=== PATIENT | male | born 1945 | race Caucasian/White ===

== ENCOUNTER 2021-02-17 08:22 | Day surgery (SDC) | payer MEDICARE, OTHER, SELFPAY ==
[2021-02-10 15:53] VITALS: BMI 25.0
--- NOTE | 2021-02-17 07:02 | MHC.SHP ---
Pre-Procedural Eval Section A Date of Service: 02/17/21 Section B Chief Complaint: cataract right eye Allergies: Allergies Allergy/AdvReac Type Severity Reaction Status Date / Time No Known Allergies Allergy Unverified 02/10/21 15:25 [No Known Allergies*] Plan I have reviewed the history and physical and performed a pertinent physical examination on my patient. No changes have occurred unless specified.
[2021-02-17 10:29] VITALS: BP 160/78; PULSE 57; RESP 18; TEMP 36.7; O2SAT 98
[2021-02-17] MEDS: Tetracaine HCl/PF 0.5% Oph Sol 4 ML DROPS 1 DROP EYE-RIGHT (10:35)
[2021-02-17] MEDS: Lactated Ringers 500 ML 50 ML IVCONT (10:35)
[2021-02-17] MEDS: Tropicamide 1 % Ophth Sol 3 ML BTL 1 DROP EYE-RIGHT ×3 (10:38→10:45)
[2021-02-17] MEDS: Phenylephrine HCL 2.5% Oph SoL 2 ML BOTTLE 1 DROP EYE-RIGHT ×3 (10:40→10:47)
--- NOTE | 2021-02-17 10:51 | HO.ANESPROP2 ---
[facility] Past Medical History Medical History Anxiety Bipolar disorder COPD (chronic obstructive pulmonary disease) COVID-19 vaccine series completed Dementia Elevated cholesterol Mood disorder Psychosis Surgical History Surgical History History of foot surgery Hx of colonoscopy Social History Social History Are you a primary critical care technician to a significant other at home: No Do you presently have visiting nurse or other home services: No Patient Tobacco Use Status: Former Tobacco user Quit Date: 2019 Tobacco use type: Cigarette Smoked in Last 30 Days: No Second Hand Smoke Exposure: No Use of substances other than those prescribed or required for medical reasons: No Have you been hit, kicked, punched, or otherwise hurt by someone within the past year? If so, by whom?: No Advance Directives: No Advance Directives Information Provided: No Advance Directives on File: No Recently lost weight without trying: No Eating poorly because of decreased appetite: No Nutrition Risks: No Nutritional Risk Meds Allergies Allergy/AdvReac Type Severity Reaction Status Date / Time No Known Allergies Allergy Verified 02/17/21 09:51 [No Known Allergies*] Active Medications: Current Medications Generic Name Dose Route Start Last Admin Trade Name Freq PRN Reason Stop Dose Admin Lactated Ringer's 1,000 mls @ 50 mls/hr 02/14/21 12:15 Lr IVCONT .Q20H GENOVEVA Lactated Ringer's 500 mls @ 50 mls/hr 02/17/21 07:45 02/17/21 10:35 Lr IVCONT 50 mls/hr .Q10H GENOVEVA Administration Povidone Iodine 1 appl 02/17/21 07:02 Povidone Iodine 5 % Ophth Soln 30 Ml Bottle EYE-RIGHT PREOP PRN Pre-Op Surgical Implant Prophy Home Medications Medication Instructions Recorded Confirmed Last Taken Type atorvastatin 20 mg tablet 1 tab PO DAILY 02/10/21 02/10/21 Unknown History cholecalciferol (vitamin D3) 25 1 tab PO DAILY 02/10/21 02/10/21 Unknown History mcg (1,000 unit) tablet divalproex 250 mg tablet,extended 250 tab PO BID 02/10/21 02/10/21 02/17/21 06:30 History release 24 hr gabapentin 400 mg capsule 400 cap PO BID 02/10/21 02/10/21 02/17/21 06:30 History quetiapine 50 mg tablet 50 tab PO BID 02/10/21 02/10/21 02/17/21 06:30 History venlafaxine 150 mg 1 cap PO DAILY 02/10/21 02/10/21 02/17/21 06:30 History capsule,extended release 24 hr Exam Exam Date and Time: February 17, 2021 1051 Height,Weight and Vital Signs: Height 5 ft 6 in Weight 70.307 kg Last Vital Signs Temp 98.0 F 02/17/21 10:29 Pulse 57 02/17/21 10:29 Resp 18 02/17/21 10:29 BP 160/78 H 02/17/21 10:29 Pulse Ox 98 02/17/21 10:29 Airway Mallampati Class: II TM Dist: >3cm Neck ROM: Full Denture: Upper and Lower
--- NOTE | 2021-02-17 10:55 | HO.ANESPROP2 ---
[facility] Past Medical History Medical History Anxiety Bipolar disorder COPD (chronic obstructive pulmonary disease) COVID-19 vaccine series completed Dementia Elevated cholesterol Mood disorder Psychosis Surgical History Surgical History History of foot surgery Hx of colonoscopy Social History Social History Are you a primary chronic care nurse to a significant other at home: No Do you presently have visiting nurse or other home services: No Patient Tobacco Use Status: Former Tobacco user Quit Date: 2019 Tobacco use type: Cigarette Smoked in Last 30 Days: No Second Hand Smoke Exposure: No Use of substances other than those prescribed or required for medical reasons: No Have you been hit, kicked, punched, or otherwise hurt by someone within the past year? If so, by whom?: No Advance Directives: No Advance Directives Information Provided: No Advance Directives on File: No Recently lost weight without trying: No Eating poorly because of decreased appetite: No Nutrition Risks: No Nutritional Risk Meds Allergies Allergy/AdvReac Type Severity Reaction Status Date / Time No Known Allergies Allergy Verified 02/17/21 09:51 [No Known Allergies*] Active Medications: Current Medications Generic Name Dose Route Start Last Admin Trade Name Freq PRN Reason Stop Dose Admin Lactated Ringer's 1,000 mls @ 50 mls/hr 02/14/21 12:15 Lr IVCONT .Q20H GENOVEVA Lactated Ringer's 500 mls @ 50 mls/hr 02/17/21 07:45 02/17/21 10:35 Lr IVCONT 50 mls/hr .Q10H GENOVEVA Administration Lactated Ringer's 1,000 mls @ 100 mls/hr 02/17/21 11:00 Lr IVCONT .Q10H GENOVEVA Povidone Iodine 1 appl 02/17/21 07:02 Povidone Iodine 5 % Ophth Soln 30 Ml Bottle EYE-RIGHT PREOP PRN Pre-Op Surgical Implant Prophy Home Medications Medication Instructions Recorded Confirmed Last Taken Type atorvastatin 20 mg tablet 1 tab PO DAILY 02/10/21 02/10/21 Unknown History cholecalciferol (vitamin D3) 25 1 tab PO DAILY 02/10/21 02/10/21 Unknown History mcg (1,000 unit) tablet divalproex 250 mg tablet,extended 250 tab PO BID 02/10/21 02/10/21 02/17/21 06:30 History release 24 hr gabapentin 400 mg capsule 400 cap PO BID 02/10/21 02/10/21 02/17/21 06:30 History quetiapine 50 mg tablet 50 tab PO BID 02/10/21 02/10/21 02/17/21 06:30 History venlafaxine 150 mg 1 cap PO DAILY 02/10/21 02/10/21 02/17/21 06:30 History capsule,extended release 24 hr Exam Exam Date and Time: February 17, 2021 105 Height,Weight and Vital Signs: Height 5 ft 6 in Weight 70.307 kg Last Vital Signs Temp 98.0 F 02/17/21 10:29 Pulse 57 02/17/21 10:29 Resp 18 02/17/21 10:29 BP 160/78 H 02/17/21 10:29 Pulse Ox 98 02/17/21 10:29 Airway Mallampati Class: II TM Dist: >3cm Neck ROM: Limited Denture: Upper and Lower
--- NOTE | 2021-02-17 11:31 | HO.PNOPHT ---
Ophthalmology Procedure Procedure Date of Service: 02/17/21 Ophthalmology Viscoelastic: Healon Duet Dual Pack Pro Ophthalmology Lenses: TECNIS [id number] (20.5) Procedure Notes: PREOPERATIVE DIAGNOSIS: Decreased visual acuity right eye secondary to cataract POSTOPERATIVE DIAGNOSIS: Same PROCEDURE: Right cataract extraction with intraocular lens insertion SURGEON: Juan Peraza M.D. ANESTHESIA: Topical/MAC ESTIMATED BLOOD LOSS: None COMPLICATIONS: None After obtaining informed consent, the patient was brought to the operating room suite and placed in the supine position. After adequate sedation per anesthesia, topical drops of Tetracaine were given to the right eye. The eye was then prepped and draped in the usual sterile fashion. The operating room microscope was then positioned over the operative eye and a lid speculum placed. A paracentesis was created. Viscoelastic was then instilled into the anterior chamber. A three plane incision was then created temporally, utilizing a 2.85 mm keratome. Capsulotomy forceps were then utilized to create a circular tear capsulotomy. Hydrodissection and hydrodelineation were carried out until adequate mobilization of the nucleus occurred. Phacoemulsification was then utilized to remove the dense central nucleus followed by removal of the cortical material utilizing the automated aspiration irrigation unit. Viscoelastic was instilled into the posterior capsular bag followed by placement of a posterior chamber intraocular lens without difficulty. The residual Viscoelastic was then removed utilizing the automated IA machine. The wound was checked and found to be watertight. The patient tolerated the procedure well and the lid speculum was removed. Intracameral injection of Vigamox 0.1 mL followed by a subtenon injection of Kenalog-40 0.2 mL were administered. The patient will be seen in the a.m.
[2021-02-17 12:02] VITALS: BP 160/78; PULSE 73; RESP 16; TEMP 36.5; O2SAT 100
== END 2021-02-17 12:15 | disposition home or self-care (01) ==
PROVIDERS: PCP Physician Assistant Medical; Visit Provider Ophthalmology
PROC: (CPT 66985; principal; 2021-02-17 10:50)
DX: H25.11 Age-related nuclear cataract, right eye (principal); H54.7 Unspecified visual loss; F03.90 Unspecified dementia, unspecified severity, without behavioral disturbance, psychotic disturbance, mood disturbance, and anxiety; Z79.899 Other long term (current) drug therapy; Z87.891 Personal history of nicotine dependence
CPT/HCPCS: 66984; J2250; J3300; V2632

== ENCOUNTER 2021-03-03 10:19 | Day surgery (SDC) | payer MEDICARE, OTHER, SELFPAY ==
[2021-02-10 16:00] VITALS: BMI 25.0
--- NOTE | 2021-02-24 14:50 | MHC.SHP ---
Pre-Procedural Eval Section A Date of Service: 02/24/21 The patient is an INPATIENT: No The History & Physical has been completed within 30 days and I have reviewed it.: Yes Section B Chief Complaint: cataract left eye Allergies: Allergies Allergy/AdvReac Type Severity Reaction Status Date / Time No Known Allergies Allergy Verified 02/17/21 09:51 [No Known Allergies*] Plan Diagnosis/Plan: Unchanged I have reviewed the history and physical and performed a pertinent physical examination on my patient. No changes have occurred unless specified.
--- NOTE | 2021-02-27 14:44 | P.CONAN_ITS ---
Documented by User: Penelope Michel NP 02/27/21 14:44 HPI - Anesthesia Eval Consult details Narrative: 76yo M for Left Cataract Extraction IOL Insertion PCP cleared Right eye 02/17/21: [facility] 2 [facility] Past Medical History Medical History Anxiety Bipolar disorder COPD (chronic obstructive pulmonary disease) COVID-19 vaccine series completed Dementia Elevated cholesterol Mood disorder Psychosis Surgical History Surgical History History of foot surgery Hx of colonoscopy Social History Social History Are you a primary career development coordinator/teacher to a significant other at home: No Do you presently have visiting nurse or other home services: No Patient Tobacco Use Status: Former Tobacco user Quit Date: 2019 Tobacco use type: Cigarette Second Hand Smoke Exposure: No Use of substances other than those prescribed or required for medical reasons: No Have you been hit, kicked, punched, or otherwise hurt by someone within the past year? If so, by whom?: No Advance Directives: No Advance Directives Information Provided: No Advance Directives on File: No Recently lost weight without trying: No Eating poorly because of decreased appetite: No Nutrition Risks: No Nutritional Risk Meds Allergies Allergy/AdvReac Type Severity Reaction Status Date / Time No Known Allergies Allergy Verified 02/17/21 09:51 [No Known Allergies*] Home Medications Medication Instructions Recorded Confirmed Last Taken Type atorvastatin 20 mg tablet 1 tab PO DAILY 02/10/21 02/10/21 03/03/21 History cholecalciferol (vitamin D3) 25 1 tab PO DAILY 02/10/21 02/10/21 03/03/21 H istory mcg (1,000 unit) tablet divalproex 250 mg tablet,extended 250 tab PO BID 02/10/21 02/10/21 03/03/21 History release 24 hr gabapentin 400 mg capsule 400 cap PO BID 02/10/21 02/10/21 03/03/21 History quetiapine 50 mg tablet 50 tab PO BID 02/10/21 02/10/21 03/03/21 History venlafaxine 150 mg 1 cap PO DAILY 02/10/21 02/10/21 03/03/21 History capsule,extended release 24 hr Exam Exam Date and Time: February 27, 2021 1444 Height,Weight and Vital Signs: Height 5 ft 6 in Weight 70.307 kg Assessment and Plan Assessment Anesthesia Assessment: Chart Reviewed Documented by User: Queta Barker MD 03/03/21 11:18 [facility] Past Medical History Medical History Anxiety Bipolar disorder COPD (chronic obstructive pulmonary disease) COVID-19 vaccine series completed Dementia Elevated cholesterol Mood disorder Psychosis Surgical History Surgical History History of foot surgery Hx of colonoscopy History of Problems with Anesthesia: No Social History Social History Are you a primary career development coordinator/teacher to a significant other at home: No Do you presently have visiting nurse or other home services: No Patient Tobacco Use Status: Former Tobacco user Quit Date: 2019 Tobacco use type: Cigarette Second Hand Smoke Exposure: No Use of substances other than those prescribed or required for medical reasons: No Have you been hit, kicked, punched, or otherwise hurt by someone within the past year? If so, by whom?: No Advance Directives: No Advance Directives Information Provided: No Advance Directives on File: No Recently lost weight without trying: No Eating poorly because of decreased appetite: No Nutrition Risks: No Nutritional Risk Meds Allergies Allergy/AdvReac Type Severity Reaction Status Date / Time No Known Allergies Allergy Verified 02/17/21 09:51 [No Known Allergies*] Home Medications Medication Instructions Recorded Confirmed Last Taken Type atorvastatin 20 mg tablet 1 tab PO DAILY 02/10/21 02/10/21 03/03/21 History cholecalciferol (vitamin D3) 25 1 tab PO DAILY 02/10/21 02/10/21 03/03/21 History mcg (1,000 unit) tablet divalproex 250 mg tablet,extended 250 tab PO BID 02/10/21 02/10/21 03/03/21 History release 24 hr gabapentin 400 mg capsule 400 cap PO BID 02/10/21 02/10/21 03/03/21 History quetiapine 50 mg tablet 50 tab PO BID 02/10/21 02/10/21 03/03/21 History venlafaxine 150 mg 1 cap PO DAILY 02/10/21 02/10/21 03/03/21 History capsule,extended release 24 hr Exam Airway Mallampati Class: II (Edentulous) TM Dist: >3cm Neck ROM: Full Denture: Upper and Lower Partial: Lower Loose/Missing/Broken Teeth: Yes, Upper and Lower Heart: RRR Lungs: CTA Assessment and Plan Assessment Anesthesia Assessment: Anesthesia Plan Discussed and Chart Reviewed Final Anesthetic Review History of Problems with Anesthesia: No NPO: Yes ASA Class: II Final Preanesthetic Review: Meds/Allgs Chart Reviewed, Consent Obtained/Reviewed and Anes Risks/Benef Reviewed Patient Risk: Low Procedure Risk: Low Anesthetic Plan Anesthetic Plan: MAC: Disposition: Standard PACU
[2021-03-03 10:41] VITALS: BP 135/73; PULSE 67; RESP 16; TEMP 36.2; O2SAT 96
[2021-03-03] MEDS: Tetracaine HCl/PF 0.5% Oph Sol 4 ML DROPS 1 DROP EYE-LEFT (10:43)
[2021-03-03] MEDS: Tropicamide 1 % Ophth Sol 3 ML BTL 1 DROP EYE-LEFT ×3 (10:44→10:57)
[2021-03-03] MEDS: Phenylephrine HCL 2.5% Oph SoL 2 ML BOTTLE 1 DROP EYE-LEFT ×3 (10:49→11:03)
[2021-03-03] MEDS: Lactated Ringers 500 ML 50 ML IV (10:54)
--- NOTE | 2021-03-03 11:49 | HO.PNOPHT ---
Ophthalmology Procedure Procedure Date of Service: 03/03/21 Ophthalmology Viscoelastic: Healjuan francisco Duet Dual Pack Pro Ophthalmology Lenses: TECGINA [id number] (21) Procedure Notes: PREOPERATIVE DIAGNOSIS: Decreased visual acuity left eye secondary to cataract POSTOPERATIVE DIAGNOSIS: Same PROCEDURE: Left cataract extraction with intraocular lens insertion SURGEON: Juan Peraza M.D. ANESTHESIA: Topical/MAC ESTIMATED BLOOD LOSS: None COMPLICATIONS: None After obtaining informed consent, the patient was brought to the operation room suite and placed in the supine position. After adequate sedation per anesthesia, topical drops of Tetracaine were given to the left eye. The eye was then prepped and draped in the usual sterile fashion. The operating room microscope was then positioned over the operative eye and a lid speculum placed. A paracentesis was created. Viscoelastic was then instilled into the anterior chamber. A three plane incision was then created temporally, utilizing a 2.85 mm keratome. Capsulotomy forceps were then utilized to create a circular tear capsulotomy. Hydrodissection and hydrodelineation were carried out until adequate mobilization of the nucleus occurred. Phacoemulsification was then utilized to remove the dense central nucleus followed by removal of the cortical material utilizing the automated aspiration irrigation unit. Viscoat elastic was instilled into the posterior capsular bag followed by placement of a posterior chamber intraocular lens without difficulty. The residual Viscoat elastic was then removed utilizing the automated IA machine. The wound was check and found to be watertight. The patient tolerated the procedure well and the lid speculum was removed. Intracameral injection of Vigamox 0.1 mL followed by a subtenon injection of Kenalog-40 0.2 mL were administered. The patient will be seen in the a.m.
[2021-03-03 12:15] VITALS: BP 168/71; PULSE 81; RESP 16; TEMP 36.6; O2SAT 100
== END 2021-03-03 12:24 | disposition home or self-care (01) ==
PROVIDERS: PCP Physician Assistant Medical; Visit Provider Ophthalmology
PROC: (CPT 66985; principal; 2021-03-03 12:10)
DX: H25.12 Age-related nuclear cataract, left eye (principal); H54.7 Unspecified visual loss; F03.90 Unspecified dementia, unspecified severity, without behavioral disturbance, psychotic disturbance, mood disturbance, and anxiety; F42.9 Obsessive-compulsive disorder, unspecified; F31.9 Bipolar disorder, unspecified; E78.5 Hyperlipidemia, unspecified; R25.1 Tremor, unspecified; Z85.828 Personal history of other malignant neoplasm of skin; Z79.899 Other long term (current) drug therapy; Z87.891 Personal history of nicotine dependence
CPT/HCPCS: 66984; J2250; J3010; J3300; V2632

== ENCOUNTER 2021-04-24 14:41 | Emergency (ER) | payer MEDICARE, OTHER, SELFPAY ==
--- NOTE | ~2021-04-24 | XR_ITS ---
EXAMINATION: XR CHEST CLINICAL INFORMATION: Falls COMPARISON: None TECHNIQUE: Portable upright AP view of the chest was obtained. FINDINGS: Patient is slightly rotated. The lungs are clear. There is no pneumothorax, pleural reaction, airspace consolidation, or effusion. The costophrenic sulci are clear. The heart is normal in size. The hilar and mediastinal contours are normal. No visible acute bony abnormality. XR/XR chest 1V IMPRESSION: Unremarkable examination.
[2021-04-24 14:51] VITALS: BP 127/68; PULSE 99; RESP 18; TEMP 37.3; O2SAT 96; BMI 24.2
--- NOTE | 2021-04-24 15:50 | ECG_ITS ---
Test Reason : weakness/fall Blood Pressure : / mmHG Vent. Rate : 086 BPM Atrial Rate : 086 BPM P-R Int : 138 ms QRS Dur : 084 ms QT Int : 340 ms P-R-T Axes : 069 -28 041 degrees QTc Int : 406 ms Normal sinus rhythm Minimal voltage criteria for LVH, may be normal variant ( R in aVL ) Nonspecific ST and T wave abnormality Abnormal ECG ST more depressed Lateral leads Referred By: Kenan Langford Electronically Signed By:PATRICE HOLT MD
--- NOTE | 2021-04-24 15:50 | ED.MALEGU ---
HPI - Male Genitourinary General Chief complaint: Urogenital-Male Stated complaint: UNSTEADY ON FEET PER FAMILY Time Seen by Provider: 04/24/21 15:49 Source: patient and EMS Mode of arrival: EMS Limitations: no limitations History of Present Illness HPI Narrative: 76-year-old male came in by ambulance for evaluation of recurrent falls at home. Patient lives home independently with , was sent to the ED for further evaluation of multiple falls, last fall was this morning, patient relate the fall for losing his balance, patient declined head injury, LOC, neck pain, chest pain, shortness of breath, abdominal pain, nausea, vomiting, fever, or chills. Patient was offered rehab at a physical therapy evaluation but patient declined and wanted to go home. Related Data Home Medications Medication Instructions Recorded Confirmed atorvastatin 20 mg tablet 1 tab PO DAILY 02/10/21 02/10/21 cholecalciferol (vitamin D3) 25 1 tab PO DAILY 02/10/21 02/10/21 mcg (1,000 unit) tablet divalproex 250 mg tablet,extended 250 tab PO BID 02/10/21 02/10/21 release 24 hr gabapentin 400 mg capsule 400 cap PO BID 02/10/21 02/10/21 quetiapine 50 mg tablet 50 tab PO BID 02/10/21 02/10/21 venlafaxine 150 mg 1 cap PO DAILY 02/10/21 02/10/21 capsule,extended release 24 hr Allergies Allergy/AdvReac Type Severity Reaction Status Date / Time No Known Allergies Allergy Verified 02/17/21 09:51 [No Known Allergies*] Review of Systems Review of Systems: All other systems are reviewed and are negative Constitutional: Reports as per HPI and Reports no additional constitutional complaints Eyes: Reports as per HPI and Reports no additional eye complaints Reports system reviewed and no additional complaints, except as documented Cardiovascular: Reports as per HPI and Reports no additional cardiovascular complaints Respiratory: Reports as per HPI and Reports no additional respiratory complaints Gastrointestinal: Reports as per HPI and Reports no additional gastrointestinal complaints Genitourinary: Reports no additional female genitourinary complaints Musculoskeletal: Reports no additional musculoskeletal complaints Skin/Breast: Reports system reviewed and no additional complaints, except as docu Psychiatric: Reports no additional psychiatric complaints Endocrine: Reports no additional endocrine complaints Hematologic/Lymphatic: Reports no additional hematologic/lymphatic complaints Allergic/Immunologic: Reports no additional allergic/immunologic complaints Reports system reviewed and no additional complaints, except as documented and Reports Abnormal speech present [facility] Past Medical History Medical History Anxiety Bipolar disorder COPD (chronic obstructive pulmonary disease) COVID-19 vaccine series completed Dementia Elevated cholesterol Mood disorder Psychosis Surgical History History of foot surgery Hx of colonoscopy Social History Social History Are you a primary floor care specialist to a significant other at home: No Do you presently have visiting nurse or other home services: No Alcohol intake: never Patient Tobacco Use Status: Former Tobacco user Quit Date: 2019 Tobacco use type: Cigarette Second Hand Smoke Exposure: No Use of substances other than those prescribed or required for medical reasons: No Advance Directives: No Advance Directives Information Provided: No Physical Exam Vital Signs: Vital Signs: Last Vital Signs Temp 99.2 F 04/24/21 14:51 Pulse 99 04/24/21 14:51 Resp 18 04/24/21 14:51 BP 127/68 04/24/21 14:51 Pulse Ox 96 04/24/21 14:51 Body Mass Index 24.2 Vital signs have been reviewed as appeared to be correct. Blood pressure normal. Heart rate normal. Respiration rate normal. Temperature normal. Oxygen saturation normal. Appearance: Alert. Oriented X3. No acute distress. Head: Normal external exam. Normocephalic. Atraumatic. No Baxter signs noted. No raccoon eyes noted Eyes: PERRLA. EOMI. Conjunctiva and sclera normal. Eyelids normal. ENT: TM's Normal. Pharynx normal. Uvula midline. Moist mucous membranes. No trismus noted. No drooling noted. No muffled voice noted. Neck: Normal inspection. Neck supple. FROM. No adenopathy. Thyroid Normal. No meningeal signs. No neck mass noted. CVS: Normal heart rate and rhythm. Heart sound normal. No murmurs noted. Pulses normal throughout. Respiratory: No respiratory distress. Painless inspiration. Breath sounds normal. No wheezes/rales/rhonchi noted. Chest nontender. No accessory muscle usage noted or decreased air movement noted. Abdomen: Soft and nontender. Bowel sounds normal in all 4 quadrants. No distention noted. No organomegaly noted. No visible injury noted. Back: No CVA tenderness. Full range of motion noted. Skin: Skin warm and dry. Normal skin color. Normal skin turgor. No rashes/lesions/lacerations noted. Extremities: No lower extremity edema. Extremities exhibit normal range of motion. Extremities nontender. Neuro: Oriented X 3. Cranial nerve exam: II-XII are grossly intact No motor deficit. No sensory deficit. Reflexes normal. Course Course Course Narrative: Assessment and plan. 76-year-old male came in for evaluation of recurrent falling at home, no head injury, no change in patient daily routine. Patient was offered physical therapy evaluation and placement to a rehab but patient refuse and adamant to go home. Reevaluation(s) Reevaluation #1: is healthcare proxy for the patient and refused to take the patient back home, would like him to be evaluated by physical therapy and hopefully placed in rehab. Time: 19:18 Reevaluation #2: Physician observation started at 19:30 . Patient placed in physician observation because the patient needed more time to see PT/case management for evaluation and the need for placement patient's vital sign were stable, patient is alert and oriented , neuro exam unchanged, unremarkable rest of physical exam. Time: 19:23 [facility] - Male Genitourinary Medical Records Attestation: I reviewed the patient's medical records. Lab Data Attestation: I reviewed the patient's lab results. Result diagrams: 04/24/21 16:49 04/24/21 16:49 Labs: Lab Results 04/24/21 04/24/21 04/24/21 Range/Units 16:43 16:49 16:49 WBC 11.1 H (4.8-10.8) X10*3/uL RBC 4.18 L (4.60-5.80) X10*6/uL Hgb 13.3 L (14.0-18.0) g/dl Hct 38.7 L (42-52) % MCV 92.6 (80-98) fL MCH 31.8 (27.0-33.0) pg MCHC 34.4 (31.0-36.0) g/dl RDW 13.7 (11.0-16.0) % Plt Count 241 (160-400) X10*3/uL MPV 10.5 (9.4-12.4) fL Immature Gran % (Auto) 0.4 (0.0-0.4) % Neut % (Auto) 75.0 H (45-73) % Lymph % (Auto) 11.7 L (20-40) % Addison % (Auto) 8.2 (2-11) % Eos % (Auto) 4.4 H (0-4) % Baso % (Auto) 0.3 (0-2) % Lymph # (Auto) 1.3 (1.2-4.9) X10*3/uL Addison # (Auto) 0.9 (0.1-1.2) X10*3/uL Eos # (Auto) 0.5 H (0.0-0.4) X10*3/uL Baso # (Auto) 0.0 (0.0-0.2) X10*3/uL Abs Immat Gran (auto) 0.05 H (0.00-0.03) X10*3/uL Absolute Neuts (auto) 8.4 H (2.0-8.3) X10*3/uL Absolute Nucleated RBC 0.000 (0.0-0.012) X10*3/uL Nucleated RBC % (auto) 0.0 (0.0-0.2) /100WBC Sodium 140 (135-145) mmol/L Potassium 4.0 (3.3-5.1) mmol/L Chloride 104 (96-108) mmol/L Carbon Dioxide 28 (22-29) mmol/L Anion Gap 12 (12-20) BUN 9 (9-16) mg/dL Creatinine 1.01 (0.5-1.4) mg/dL Estim Creat Clear Calc 55.2 Estimated GFR > 60 Random Glucose 101 (60-115) mg/dL Calcium 9.0 (8.4-10.2) mg/dL Total Bilirubin 0.2 (0.0-1.0) mg/dL Direct Bilirubin 0.2 (0.0-0.5) mg/dL AST 21 (5-37) U/L ALT 7 (0-40) U/L Alkaline Phosphatase 93 (39-117) U/L Troponin I High Sens (<3.5-35.0) ng/L Total Protein 6.5 (6.5-8.0) g/dL Albumin 3.9 (3.5-5.0) g/dL Lipase 62 (8-78) U/L Urine Color YELLOW Urine Appearance HAZY Urine pH 7.0 (5.0-8.0) Ur Specific [place] 1.015 (1.005-1.025) Urine Protein TRACE (NEG-TRACE) MG/DL Urine Glucose (UA) NEG (NEG) MG/DL Urine Ketones 5 (NEG) MG/DL Urine Blood NEG (NEG) Urine Nitrite NEG (NEG) Ur Leukocyte Esterase NEG (NEG) 04/24/21 Range/Units 16:49 WBC (4.8-10.8) X10*3/uL RBC (4.60-5.80) X10*6/uL Hgb (14.0-18.0) g/dl Hct (42-52) % MCV (80-98) fL MCH (27.0-33.0) pg MCHC (31.0-36.0) g/dl RDW (11.0-16.0) % Plt Count (160-400) X10*3/uL MPV (9.4-12.4) fL Immature Gran % (Auto) (0.0-0.4) % Neut % (Auto) (45-73) % Lymph % (Auto) (20-40) % Addison % (Auto) (2-11) % Eos % (Auto) (0-4) % Baso % (Auto) (0-2) % Lymph # (Auto) (1.2-4.9) X10*3/uL Addison # (Auto) (0.1-1.2) X10*3/uL Eos # (Auto) (0.0-0.4) X10*3/uL Baso # (Auto) (0.0-0.2) X10*3/uL Abs Immat Gran (auto) (0.00-0.03) X10*3/uL Absolute Neuts (auto) (2.0-8.3) X10*3/uL Absolute Nucleated RBC (0.0-0.012) X10*3/uL Nucleated RBC % (auto) (0.0-0.2) /100WBC Sodium (135-145) mmol/L Potassium (3.3-5.1) mmol/L Chloride (96-108) mmol/L Carbon Dioxide (22-29) mmol/L Anion Gap (12-20) BUN (9-16) mg/dL Creatinine (0.5-1.4) mg/dL Estim Creat Clear Calc Estimated GFR Random Glucose (60-115) mg/dL Calcium (8.4-10.2) mg/dL Total Bilirubin (0.0-1.0) mg/dL Direct Bilirubin (0.0-0.5) mg/dL AST (5-37) U/L ALT (0-40) U/L Alkaline Phosphatase (39-117) U/L Troponin I High Sens 4.7 (<3.5-35.0) ng/L Total Protein (6.5-8.0) g/dL Albumin (3.5-5.0) g/dL Lipase (8-78) U/L Urine Color Urine Appearance Urine pH (5.0-8.0) Ur Specific [place] (1.005-1.025) Urine Protein (NEG-TRACE) MG/DL Urine Glucose (UA) (NEG) MG/DL Urine Ketones (NEG) MG/DL Urine Blood (NEG) Urine Nitrite (NEG) Ur Leukocyte Esterase (NEG) Imaging Data Chest x-ray: Radiologist's impression: No acute pathology Discharge Plan Discharge Clinical Impression: Generalized weakness Prescriptions: No Action atorvastatin 20 mg tablet 1 tab PO DAILY RF: 0 gabapentin 400 mg capsule 400 cap PO BID RF: 0 venlafaxine 150 mg capsule,extended release 24hr 1 cap PO DAILY RF: 0 divalproex 250 mg tablet extended release 24 hr 250 tab PO BID RF: 0 quetiapine 50 mg tablet 50 tab PO BID RF: 0 cholecalciferol (vitamin D3) 25 mcg (1,000 unit) tablet 1 tab PO DAILY RF: 0 Referrals: Physician,Unknown J [Primary Care Provider] - 2 days
--- NOTE | 2021-04-24 16:41 | PC.NURSE ---
Pt unable to void with urinal. Strait cath performed for 100cc. Sample sent to lab.
[2021-04-24 16:58] LABS: Appearance Urine HAZY; Color Urine YELLOW; Glucose Urine UA NEG (NEG); Leukocyte Esterase Urine NEG (NEG); Nitrite Urine NEG (NEG); Specific Gravity - Urine 1.015 (1.005-1.025); Urine Blood NEG (NEG); Urine Ketones 5 MG/DL (NEG); Urine Protein TRACE MG/DL (NEG-TRACE)
[2021-04-24 16:59] LABS: MANUAL DIFF FLAG NO
[2021-04-24 17:10] LABS: Basophils Percent Auto 0.3 % (0-2); Eosinophils Absolute Auto 0.5 X10*3/uL (0.0-0.4); Eosinophils Percent Auto 4.4 % (0-4); Hematocrit 38.7 % (42-52); Hemoglobin 13.3 g/dl (14.0-18.0); Imm Gran Abs Auto 0.05 X10*3/uL (0.00-0.03); Imm Gran Pct Auto 0.4 % (0.0-0.4); Lymphocytes Absolute Auto 1.3 X10*3/uL (1.2-4.9); Lymphocytes Percent Auto 11.7 % (20-40); Mean Corpuscular HGB Conc 34.4 g/dl (31.0-36.0); Mean Corpuscular Hemoglobin 31.8 pg (27.0-33.0); Mean Corpuscular Volume 92.6 fL (80-98); Mean Platelet Volume 10.5 fL (9.4-12.4); Monocytes Absolute Auto 0.9 X10*3/uL (0.1-1.2); Monocytes Percent Auto 8.2 % (2-11); Neutrophils Absolute Auto 8.4 X10*3/uL (2.0-8.3); Platelet Count 241 X10*3/uL (160-400); Red Blood Count 4.18 X10*6/uL (4.60-5.80); Red Cell Distribution Width 13.7 % (11.0-16.0); White Blood Count 11.1 X10*3/uL (4.8-10.8)
[2021-04-24 17:18] LABS: Alanine Aminotransferase 7 U/L (0-40); Albumin Level 3.9 g/dL (3.5-5.0); Alkaline Phosphatase 93 U/L (39-117); Anion Gap 12 (12-20); Aspartate Amino Transferase 21 U/L (5-37); Bilirubin Direct 0.2 mg/dL (0.0-0.5); Bilirubin Total 0.2 mg/dL (0.0-1.0); Blood Urea Nitrogen 9 mg/dL (9-16); Carbon Dioxide 28 mmol/L (22-29); Chloride 104 mmol/L (96-108); Creatinine Clr Calc Pharmacy 55.2; Estimated Glomerular Filt Rate > 60; Glucose Random 101 mg/dL (60-115); Lipase 62 U/L (8-78); Sodium 140 mmol/L (135-145); Total Protein 6.5 g/dL (6.5-8.0)
[2021-04-24 17:24] LABS: Troponin-I High Sensitivity 4.7 ng/L (<3.5-35.0)
--- NOTE | 2021-04-24 17:57 | PC.NURSE ---
cm reaching out to regarding plans- str or dc
--- NOTE | 2021-04-24 18:40 | PC.NURSE ---
plan for pt to see physical therapy in am. decision will be made s/p with
--- NOTE | 2021-04-24 19:55 | MHC.CM.ED ---
JOE was asked to meet with this patient, as pt is demanding to be discharged and pt's is refusing to take him home, stating he has multiple falls and is unsafe at home. is requesting STR. CM had extensive conversation with Emma ([phone]), pt's , who states he has a long standing psychiatric history, with a [facility] hospitalization for 30 days in 2017. Emma states her was diagnosed with dementia in 2014 and she feels he is worse. Pt has a cane and walker, but Emma says he refuses to use them. Emma is willing to speak with about PT evaluation and possible STR. CM witnessed pt repeatedly telling his to pick him up and he will not fall again . Emma steadfastly refused. CM then explained to patient that Emma would not pick him up and he would need to stay overnight and have a PT evaluation. Pt finally agreeable, but wants to go home in the morning. CM spoke with Emma and she is very relieved that pt will stay overnight. Pt has been ambulating independently in the ED, but uses a shuffling gait. When pt questioned why he falls, he state I go too fast. . Pt moved to room 9 for quiet. Pt given sandwich, pudding and milk. RN and Dr. Langford aware. PT evaluation ordered for am. Pt lives with his , does not use his can or walker and has no services. Pt is fully vaccinated with Pfizer and received the booster 03/30. No HCP on file. Pt was agitated and CM did not feel it was appropriate to address the HCP at this time. CM returned to patient room an hour later and pt was sleeping. D/C plan is uncertain at this time, pending PT evaluation. No referrals placed. CM to follow for d/c needs.
[2021-04-24 20:39] VITALS: BP 129/63; PULSE 89; RESP 18; TEMP 37.6; O2SAT 94
--- NOTE | 2021-04-24 20:47 | PC.NURSE ---
pt is resting at this time. no sob or chest pain. pt able to ambulate with a steady gait.
--- NOTE | 2021-04-24 21:50 | PC.NURSE ---
no sign of distress. pt resting and watching TV at this time.
[2021-04-24 23:06] VITALS: BP 142/83; PULSE 85; RESP 14; O2SAT 92
--- NOTE | 2021-04-25 02:40 | PC.NURSE ---
warm blanket given and pt sleeping at this time.
[2021-04-25 03:01] VITALS: BP 144/77; PULSE 84; RESP 16; O2SAT 96
--- NOTE | 2021-04-25 04:54 | PC.NURSE ---
pt ambulated to the bathroom with no problems. Pt refused to completely currency exchange specialist was ok with taking off shirt and putting on hospital gown. Pt back in bed.
[2021-04-25 05:54] VITALS: BP 141/65; PULSE 85; RESP 16; O2SAT 92
[2021-04-25 07:32] VITALS: BP 141/65; PULSE 85; O2SAT 92
[2021-04-25 07:42] VITALS: BP 151/76; PULSE 78; RESP 18; TEMP 36.6; O2SAT 100
--- NOTE | 2021-04-25 09:38 | MHC.CM.ED ---
Patient reamains in the ER. Physical therapy eval completed home therapy is recommended. Spoke with patient's , Emma via telephone at [phone]. Emma agreeable to home services. [facility] is unable to accept patient at this time. Emma agreeable to referral being broadcasted. Emma will be here at 10am to pick patient up. Patient, Micah LOPEZ and Palma RN aware. Continue to monitor for d/c needs.
[2021-04-25 10:00] VITALS: BP 170/92; PULSE 81; RESP 18; TEMP 36.9; O2SAT 95
== END 2021-04-25 10:29 | disposition home or self-care (01) ==
PROVIDERS: Emergency Provider Emergency Medicine; PCP Physician Assistant Medical
DX: R53.1 Weakness (principal); R26.81 Unsteadiness on feet; F17.210 Nicotine dependence, cigarettes, uncomplicated; Z71.6 Tobacco abuse counseling; Z79.899 Other long term (current) drug therapy
CPT/HCPCS: 36415; 71045; 80048; 80076; 81003; 83690; 84484; 85025; 93005; 97162; 99285

== ENCOUNTER 2023-09-25 19:29 | Emergency (ER) | payer OTHER, MEDICARE, SELFPAY ==
--- NOTE | 2023-09-25 | ECG_ITS ---
Test Reason : WEAKNESS Blood Pressure : / mmHG Vent. Rate : 068 BPM Atrial Rate : 068 BPM P-R Int : 122 ms QRS Dur : 070 ms QT Int : 370 ms P-R-T Axes : 041 -25 035 degrees QTc Int : 393 ms Normal sinus rhythm with sinus arrhythmia Nonspecific ST abnormality Abnormal ECG When compared with ECG of 24-APR-2021 16:12, Nonspecific T wave abnormality no longer evident in Lateral leads Referred By: Generic ED Physician Electronically Signed By:WES MEZA
--- NOTE | ~2023-09-25 | CT_ITS ---
EXAMINATION: CT HEAD WITHOUT CONTRAST CT CERVICAL SPINE WITHOUT CONTRAST CLINICAL INFORMATION: Fall. COMPARISON: CT head from 08/25/2017. TECHNIQUE: Contiguous axial imaging was performed from the skull base to vertex without intravenous administration of contrast. Contiguous axial imaging was performed from the upper chest through the skull base without intravenous administration of contrast. Coronal and sagittal reformats were obtained at the acquisition workstation. This CT examination was performed using dose optimization techniques as appropriate, variously including the following: *Automated exposure control. *Adjustment of mA and/or kV according to patient size (this includes techniques or standardized protocols for targeted exams where dose is matched to indication/reason for exam; i.e. extremities or head). *Use of iterative reconstruction technique. DLP: 963 mGy-cm FINDINGS: Head: There is no evidence of acute intracranial hemorrhage or edematous territorial infarction. Samano-white matter differentiation is preserved. There is no abnormal attenuation within the brain parenchyma. Persistent cavum septum pellucidum et vergae. Proportional prominence of the ventricles and sulcal spaces without evidence of obstructive hydrocephalus. There appears to be disproportionate volume loss of the anterior temporal poles. No abnormal mass effect or midline shift. No extra-axial fluid collections. Mild soft tissue edema along the left posterior vertex. No associated acute osseous abnormalities. Mild mucosal thickening of the paranasal sinuses. The mastoid air cells and middle ear cavities are clear. Bilateral lens extractions. Cervical Spine: Moderately motion degraded exam. The atlantooccipital and atlantoaxial articulations remain well aligned. There is anatomic alignment of the vertebral bodies and posterior elements. Congenital nonunion of the posterior arch of C1. No evidence of acute fracture or subluxation. The vertebral body heights are maintained. Advanced degenerative disc disease from C4-T1. Facet and uncovertebral joint arthropathy leads to osseous encroachment on the neural foramina from C4-T1. There is no prevertebral soft tissue swelling. The thyroid gland and remaining cervical soft tissues are within normal limits. There appears to be a partially visualized irregular airspace opacity in the right lung apex. CT/CT cervical spine wo IV con IMPRESSION: 1. No evidence of acute intracranial hemorrhage or edematous territorial infarction. 2. No evidence of acute fracture or traumatic subluxation of the cervical spine. 3. Moderate multilevel degenerative spondyloarthropathy of the cervical spine. 4. There appears to be a partially visualized irregular airspace opacity in the right lung apex. If clinically indicated, this would be better characterized with follow-up dedicated chest imaging.
[2023-09-25 19:33] VITALS: BP 130/78; PULSE 103; O2SAT 97
[2023-09-25 19:44] VITALS: BP 139/67; PULSE 69; RESP 16; TEMP 36.9; O2SAT 95; BMI 22.9
--- NOTE | 2023-09-25 19:48 | PC.NURSE ---
Pt coming in by ambulance from home, reports fall/lowered self to ground. Having ongoing weakness over the last couple of weeks.
[2023-09-25 20:10] LABS: Hematocrit 42.6 % (42.0-52.0); Hemoglobin 14.7 g/dl (14.0-18.0); Mean Corpuscular HGB Conc 34.5 g/dl (31.0-36.0); Mean Corpuscular Hemoglobin 31.3 pg (27.0-33.0); Mean Corpuscular Volume 90.6 fL (80.0-98.0); Mean Platelet Volume 10.4 fL (9.4-12.4); Platelet Count 231 X10*3/uL (160-400); Red Cell Distribution Width 13.8 % (11.0-16.0); White Blood Count 7.8 X10*3/uL (4.8-10.8)
[2023-09-25 20:16] LABS: INTERNATIONAL NORM RATIO 1.1 (0.9-1.1); Prothrombin Time 13.1 SEC (11.1-13.3)
[2023-09-25 20:26] LABS: Alanine Aminotransferase 12 U/L (0-40); Albumin Level 4.1 g/dL (3.5-5.0); Alkaline Phosphatase 57 U/L (39-117); Anion Gap 13 (12-20); Aspartate Amino Transferase 24 U/L (5-37); Bilirubin Total 0.6 mg/dL (0.0-1.0); Blood Urea Nitrogen 19 mg/dL (9-16); Calcium 9.1 mg/dL (8.4-10.2); Carbon Dioxide 28 mmol/L (22-29); Chloride 107 mmol/L (96-108); Creatinine Clr Calc Pharmacy 43.2; Estimated Glomerular Filt Rate 56; Glucose Random 109 mg/dL (60-115); Magnesium 2.2 mg/dL (1.6-2.6); Potassium 3.9 mmol/L (3.3-5.1); Sodium 144 mmol/L (135-145); Total Protein 7.1 g/dL (6.5-8.0)
[2023-09-25 20:33] LABS: Troponin-I High Sensitivity 5.7 ng/L (<3.5-35.0)
--- NOTE | 2023-09-25 21:04 | PC.NURSE ---
Patient pulled out IV and put home clothes back on. Pt assisted back to bed and encouraged to stay in be and wait to be evaluated by the doctor. Pt was agreeabe but wanted to leave clothes.
--- NOTE | 2023-09-25 21:24 | ED_ITS ---
HPI - General Adult General Chief complaint: Weakness Stated complaint: weakness/increased falls Time Seen by Provider: 09/25/23 21:11 Source: patient and RN notes reviewed Mode of arrival: ambulatory Limitations: no limitations History of Present Illness HPI narrative: This is a 78-year-old male, with history of dementia, who presents emergency department via EMS with complaints of syncopal episodes. Per EMS note, patient has had increased bilateral lower extremity weakness for the last 2 weeks and has had multiple falls at home including earlier today. Patient states that his last fall was yesterday. He is a poor historian. He states that he is unsure what causes him to fall. He is uncertain whether not he has any presyncopal symptoms however states that he ?just falls . Patient states that he is feeling well, and denies any current complaints. He is requesting a go home as he states that he will return tomorrow for re-evaluation. He has not on blood thinners. MD complaint: Falls Onset (ago): day(s) Radiation: non-radiation Quality: aching Pain Consistency: constant Relieving factors: none Exacerbating factors: none Associated symptoms: denies other symptoms Treatments prior to arrival: none Related Data Home Medications Medication Instructions Recorded Confirmed atorvastatin 20 mg tablet 1 tab PO DAILY 02/10/21 09/26/23 divalproex 250 mg tablet,extended 250 mg PO BID 02/10/21 09/26/23 release 24 hr gabapentin 300 mg capsule 300 mg PO BID 09/26/23 09/26/23 melatonin 3 mg tablet 3 mg PO BEDTIME 09/26/23 09/26/23 Allergies Allergy/AdvReac Type Severity Reaction Status Date / Time No Known Allergies Allergy Verified 02/17/21 09:51 [No Known Allergies*] Review of Systems 2 Review of Systems: Yes all other systems are reviewed and are negative Constitutional: Constitutional: Reports as per HPI [facility] Past Medical History Attestation statement: The following information was validated with the patient. Medical History COVID-19 vaccine series completed Bipolar disorder COPD (chronic obstructive pulmonary disease) Anxiety Mood disorder Psychosis Elevated cholesterol Dementia Surgical History Hx of colonoscopy History of foot surgery Social History Social History Are you a primary intensive care nurse to a significant other at home: No Do you presently have visiting nurse or other home services: No Alcohol intake: current Alcohol intake frequency: holidays/special occasions only Alcohol type: beer Patient Tobacco Use Status: Former Tobacco user Quit Date: 2019 Tobacco use type: Cigarette Smoked in Last 30 Days: No Second Hand Smoke Exposure: No Use of substances other than those prescribed or required for medical reasons: No Any prior treatment program specific to substance use: No Advance Directives: No Advance Directives Information Provided: No Physical Exam ED Vital Signs: Vital Signs - 24 hr 09/26/23 13:47 09/26/23 19:01 09/27/23 07:24 Temperature 98.3 F 98.2 F 97.6 F Pulse Rate 63 74 53 Respiratory Rate 16 16 16 Blood Pressure 176/78 H 170/72 H 188/81 H Pulse Oximetry 98 96 95 Oxygen Delivery Method Room Air Room Air Room Air BMI result Body Mass Index 22.9 Const General: cooperative, comfortable and no acute distress Orientation/consciousness: patient oriented x3 Limitations: no limitations HENMT Head: Yes normal to inspection, Yes normocephalic and Yes atraumatic Ears: hearing grossly normal bilaterally General nose exam: Normal external nose present Face and sinus: Yes normal facial exam Mouth: Normal oral and palatal mucosa present, oropharynx normal and moist mucous membranes Throat: Yes posterior oropharynx normal Eyes General: appearance normal, both eyes and all related structures Eyelids: Yes eyelids normal Conjunctivae: conjunctivae normal Sclerae: sclerae normal Pupils: Equal, round and reactive pupils present EOM: EOMs intact bilaterally Neck Neck: Yes normal visual inspection, Yes full ROM and Yes no lymphadenopathy Lymphatic: no lymphadenopathy noted Chest Chest palpation & inspection: normal inspection of the chest Resp Effort & Inspection: normal respiratory effort and able to speak in complete sentences Auscultation: clear to auscultation bilaterally, no crackles, no rales, no rhonchi and no wheezes Cardio Rate: regular rate Rhythm: regular rhythm Heart sounds: S1 normal heart sound present and S2 normal heart sound present GI Other: Abdomen is soft, nontender, nondistended Inspection: Yes normal to inspection Skin General skin exam: no rashes or lesions noted Trauma: no lacerations or abrasions Wounds: no wounds Neuro General: patient oriented x3 and moves all extremities Cranial nerves: Yes Equal, round and reactive pupils present Extrem General: Yes normal to inspection Right upper extremity: normal to inspection Left upper extremity: normal to inspection Right lower extremity: normal to inspection Left lower extremity: normal to inspection Course Reevaluation(s) Reevaluation #1: Patient has been alert and oriented x4. He is frequently seen walking around the emergency room, shuffling his feet, this is likely the source of his frequent falls. Patient is slightly orthostatic, will administer IV fluids. Urine does appear to being infected. Patient has no leukocytosis stable H&H. CT head and neck unremarkable for any acute findings. EKG normal sinus rhythm with sinus arrhythmia. Will administer IV fluids. Will repeat orthostatic vitals. Patient will be seen by Physical therapy and case management in the morning to ensure patient is safe to return home. Nurse spoke to who states that due to frequent falls she does not feel as though patient is safe and would like him to be evaluated by PT and case management in the morning. Patient is agreeable. Physician observation initiated. Time: 01:32 Reevaluation #2: 09/26/2023 0900 --> Physician observation continues. Patient being followed by CM. Awaiting PT eval. Time: 08:53 Reevaluation #3: Physician observation continued. No acute overnight events. Patient was given Norvasc last night for elevated blood pressure. BP trends were reviewed, overall patient has been on the higher side. Will initiate Norvasc 5 mg daily. On patient is pending physical therapy evaluation. Case management has been consulted for safe disposition plan. Will continue to monitor. Medications Administered Generic Name Dose Route Start Last Admin Trade Name Freq PRN Reason Stop Dose Admin Atorvastatin Calcium 20 mg 09/26/23 21:00 09/26/23 20:09 Atorvastatin Calcium 20 Mg Tablet PO 20 mg BEDTIME GENOVEVA Administration Divalproex Sodium 250 mg 09/26/23 09:45 09/26/23 20:09 Divalproex Sodium Er 250 Mg Tab.Er.24h PO 250 mg BID GENOVEVA Administration Gabapentin 300 mg 09/26/23 09:30 09/26/23 20:09 Gabapentin 300 Mg Capsule PO 300 mg BID GENOVEVA Administration Melatonin 3 mg 09/26/23 21:00 09/26/23 20:09 Melatonin 3 Mg Tablet PO 3 mg BEDTIME GENOVEVA Administration Discontinued Medications Generic Name Dose Route Start Last Admin Trade Name Adele PRN Reason Stop Dose Admin Amlodipine Besylate 5 mg 09/26/23 20:02 09/26/23 20:09 Amlodipine Besylate 5 Mg Tablet PO 09/26/23 20:03 5 mg ONCE ONE Administration Protocol Sodium Chloride 1,000 mls @ 999 mls/hr 09/26/23 01:31 09/26/23 07:14 Ns IV 09/26/23 02:31 Infused .Q1H1M ONE Infusion Olanzapine 20 mg 09/26/23 20:02 09/26/23 20:09 Olanzapine Odt 10 Mg Tab.Dennydis TRANSLINGU 09/26/23 20:03 20 mg ONCE ONE Administration Medical Decision Making Medical Decision Making [facility] Narrative: This is a 78-year-old male, with a history of dementia, who presents emergency department with complaints of increased bilateral lower extremity weakness for the last 2 weeks with increased falls. On arrival, vital signs within normal limits. Patient is alert and oriented however is a poor historian and is uncertain whether not he has any symptoms prior to his falls. He states that he ?just falls?. Stating last fall was yesterday however per no patient did have a fall earlier today. Patient is pleasant however eager for discharge. I explained to him that he needs to be further worked up as it is unclear what is causing him to fall. Plan: Labs, EKG, CT head and neck Differential Diagnosis Differential Diagnoses: The differential diagnosis associated with the presentation includes ICH, subdural hematoma, electrolyte derangement, ACS, syncope Admission/Observation Consideration of admission/observation: Escalation of care including admission/observation considered Lab Data [facility] Lab Attestation statement: I reviewed the patient's lab results. No leukocytosis, stable H&H, chemistry within normal limits. Troponin flat. Urine does not appear to be infected. 09/25/23 20:00 09/25/23 20:00 Labs: Lab Results 09/25/23 09/25/23 09/25/23 Range/Units 20:00 21:43 23:36 WBC 7.8 (4.8-10.8) X10*3/uL RBC 4.70 (4.60-5.80) X10*6/uL Hgb 14.7 (14.0-18.0) g/dl Hct 42.6 (42.0-52.0) % MCV 90.6 (80.0-98.0) fL MCH 31.3 (27.0-33.0) pg MCHC 34.5 (31.0-36.0) g/dl RDW 13.8 (11.0-16.0) % Plt Count 231 (160-400) X10*3/uL MPV 10.4 (9.4-12.4) fL Absolute Nucleated RBC 0.000 (0.0-0.012) X10*3/uL Nucleated RBC % (auto) 0.0 (0.0-0.2) /100WBC PT 13.1 (11.1-13.3) SEC INR 1.1 (0.9-1.1) Sodium 144 (135-145) mmol/L Potassium 3.9 (3.3-5.1) mmol/L Chloride 107 (96-108) mmol/L Carbon Dioxide 28 (22-29) mmol/L Anion Gap 13 (12-20) BUN 19 H (9-16) mg/dL Creatinine 1.25 (0.5-1.4) mg/dL Estim Creat Clear Calc 43.2 Estimated GFR 56 Random Glucose 109 (60-115) mg/dL Calcium 9.1 (8.4-10.2) mg/dL Magnesium 2.2 (1.6-2.6) mg/dL Total Bilirubin 0.6 (0.0-1.0) mg/dL AST 24 (5-37) U/L ALT 12 (0-40) U/L Alkaline Phosphatase 57 (39-117) U/L Troponin I High Sens 5.7 6.4 (<3.5-35.0) ng/L Total Protein 7.1 (6.5-8.0) g/dL Albumin 4.1 (3.5-5.0) g/dL Urine Color Dark Yellow Urine Appearance Cloudy Urine pH 5.5 (5.0-9.0) Ur Specific [place] >= 1.030 H (1.005-1.025) Urine Protein 30 (1+) H (Neg-Trace) mg/dL Urine Glucose (UA) Negative (Negative) mg/dL Urine Ketones Trace (Negative) mg/dL Urine Blood Negative (Negative) Urine Nitrite Negative (Negative) Ur Leukocyte Esterase Negative (Negative) Urine RBC 0-2 (0-2) /HPF Urine WBC 0-5 (0-5) /HPF Ur Squamous Epith Cells 3-5 (0-2) /HPF Urine Bacteria None Seen (None Seen) Hyaline Casts 11-20 (0-2) /LPF Independent Interpretation I performed an independent interpretation of an: EKG Interpretation: EKG normal sinus rhythm with sinus arrhythmia at a ventricular rate of 60 beats per minute, OR interval 122, QTC 393, no ST elevation or depression. Radiology Impression Discussion of test interpretation with radiology: I have reviewed the radiologist's reading. Radiologist Impression: COMPARISON: CT head from 08/25/2017. TECHNIQUE: Contiguous axial imaging was performed from the skull base to vertex without intravenous administration of contrast. Contiguous axial imaging was performed from the upper chest through the skull base without intravenous administration of contrast. Coronal and sagittal reformats were obtained at the acquisition workstation. This CT examination was performed using dose optimization techniques as appropriate, variously including the following: *Automated exposure control. *Adjustment of mA and/or kV according to patient size (this includes techniques or standardized protocols for targeted exams where dose is matched to indication/reason for exam; i.e. extremities or head). *Use of iterative reconstruction technique. DLP: 963 mGy-cm FINDINGS: Head: There is no evidence of acute intracranial hemorrhage or edematous territorial infarction. Samano-white matter differentiation is preserved. There is no abnormal attenuation within the brain parenchyma. Persistent cavum septum pellucidum et vergae. Proportional prominence of the ventricles and sulcal spaces without evidence of obstructive hydrocephalus. There appears to be disproportionate volume loss of the anterior temporal poles. No abnormal mass effect or midline shift. No extra-axial fluid collections. Mild soft tissue edema along the left posterior vertex. No associated acute osseous abnormalities. Mild mucosal thickening of the paranasal sinuses. The mastoid air cells and middle ear cavities are clear. Bilateral lens extractions. Cervical Spine: Moderately motion degraded exam. The atlantooccipital and atlantoaxial articulations remain well aligned. There is anatomic alignment of the vertebral bodies and posterior elements. Congenital nonunion of the posterior arch of C1. No evidence of acute fracture or subluxation. The vertebral body heights are maintained. Advanced degenerative disc disease from C4-T1. Facet and uncovertebral joint arthropathy leads to osseous encroachment on the neural foramina from C4-T1. There is no prevertebral soft tissue swelling. The thyroid gland and remaining cervical soft tissues are within normal limits. There appears to be a partially visualized irregular airspace opacity in the right lung apex. CT/CT head/brain wo IV con IMPRESSION: 1. No evidence of acute intracranial hemorrhage or edematous territorial infarction. 2. No evidence of acute fracture or traumatic subluxation of the cervical spine. 3. Moderate multilevel degenerative spondyloarthropathy of the cervical spine. 4. There appears to be a partially visualized irregular airspace opacity in the right lung apex. If clinically indicated, this would be better characterized with follow-up dedicated chest imaging. Dictated By: Wili Tejeda DO Chronic Conditions Patient?s care impacted by: Other (Dementia) Discharge Plan Discharge Clinical Impression: Frequent falls, Orthostatic hypotension, Dementia Patient Disposition: Still a Patient Prescriptions: No Action atorvastatin 20 mg tablet 1 tab PO DAILY divalproex 250 mg tablet extended release 24 hr 250 mg PO BID melatonin 3 mg Tablet 3 mg PO BEDTIME gabapentin 300 mg capsule 300 mg PO BID
[2023-09-25 21:53] LABS: Appearance Urine Cloudy; Color Urine Dark Yellow; Glucose Urine UA Negative (Negative); Leukocyte Esterase Urine Negative (Negative); Nitrite Urine Negative (Negative); PH 5.5 (5.0-9.0); Specific Gravity - Urine >= 1.030 (1.005-1.025); UMIC TRIGGER UACC YES; Urine Blood Negative (Negative); Urine Ketones Trace mg/dL (Negative); Urine Protein 30 (1+) mg/dL (Neg-Trace)
[2023-09-25 22:00] LABS: Bacteria Urine None Seen (None Seen); RBC Urine 0-2 /HPF (0-2); WBC Urine 0-5 /HPF (0-5)
[2023-09-25 22:37] VITALS: BP 144/79; PULSE 81; RESP 16; TEMP 36.9; O2SAT 98
--- NOTE | 2023-09-25 23:28 | PC.NURSE ---
This RN spoke to Emma on the madalyn and discussed comfort with pt going home or staying for PT eval tomorrow. Emma believes it would be best to have pt stay for eval and pt was not safe to go home at this time. Discussed with Kaylene LOPEZ as well as pt. pt spoke to on phone and he was agreeable to stay.
[2023-09-25 23:31] VITALS: BP 145/74; BP 154/82; PULSE 82; PULSE 86
[2023-09-25 23:32] VITALS: BP 133/74; PULSE 99
[2023-09-26 00:01] LABS: Troponin-I High Sensitivity 6.4 ng/L (<3.5-35.0)
[2023-09-26] MEDS: 0.9 % Sodium Chloride 1,000 ML 999 ML IV (01:41)
[2023-09-26 04:22] VITALS: RESP 16
[2023-09-26 06:00] VITALS: BP 160/70; PULSE 55; RESP 16; TEMP 36.7; O2SAT 98
--- NOTE | 2023-09-26 07:26 | PC.NURSE ---
Assumed care at 0720, pt brought from ed 9 to ovflw 3 via stretcher. pt alert, oriented to self, pleasantly confused. Pt repetitively asking for his and to return back to where he was by 0900. Pt easily redirected, he denies pain. Will continue to observe.
--- NOTE | 2023-09-26 09:18 | PHA.MEDREC ---
Pharmacy Consult ? Medication Reconciliation Pharmacy has completed the medication reconciliation. Talked to pt's to confirm meds.
[2023-09-26] MEDS: Gabapentin 300 MG CAPSULE PO ×2 (10:00→20:09)
[2023-09-26] MEDS: Divalproex Sodium ER 250 MG TAB.ER.24H PO ×2 (10:07→20:09)
--- NOTE | 2023-09-26 11:34 | PC.NURSE ---
Spoke to , Emma, at 11:30am. She said that she will be coming in sometime in the afternoon. Pt is insisting on going home today, however we are waiting on a PT Eval. Nurse and doctor will speak to when she arrives. Pt updated on plan.
[2023-09-26 13:47] VITALS: BP 176/78; PULSE 63; RESP 16; TEMP 36.8; O2SAT 98
--- NOTE | 2023-09-26 14:30 | PC.NURSE ---
PT s AT BEDSIDE.
--- NOTE | 2023-09-26 17:14 | MHC.EDTECH ---
this pct assumed care of patient at 1500 ,patient very confused ,use bathroom quit frequently ,asking the same question over and over ,for dinner ate 50 % of meals and drank 240 ml juice .
[2023-09-26 19:01] VITALS: BP 170/72; PULSE 74; RESP 16; TEMP 36.8; O2SAT 96
[2023-09-26] MEDS: Atorvastatin Calcium 20 MG TABLET PO (20:09)
[2023-09-26] MEDS: OLANZapine ODT 10 MG TAB.RAPDIS 20 MG TRANSLINGU (20:09)
[2023-09-26] MEDS: amLODIPine Besylate 5 MG TABLET PO (20:09)
[2023-09-26] MEDS: Melatonin 3 MG TABLET PO (20:09)
--- NOTE | 2023-09-26 20:52 | PC.NURSE ---
pt bp at 1900 170/72, and high anxiety; OOB every second. MD made aware, new order received. amlodipine 5mg and Olanzpine ODT 20 mg Translinqu. given by this nurse. will cont. monitor
[2023-09-27 07:24] VITALS: BP 188/81; PULSE 53; RESP 16; TEMP 36.4; O2SAT 95
--- NOTE | 2023-09-27 08:45 | MHC.EDTECH ---
Pt used the bathroom and this tech shaved his face. Pt declines changing from his clothes to a guillermo.
[2023-09-27] MEDS: Divalproex Sodium ER 250 MG TAB.ER.24H PO (08:59)
[2023-09-27] MEDS: Gabapentin 300 MG CAPSULE PO (08:59)
[2023-09-27] MEDS: amLODIPine Besylate 5 MG TABLET PO (09:00)
--- NOTE | 2023-09-27 09:06 | MHC.EDTECH ---
Pt ate 100% of his breakfast, 480cc of juice
[2023-09-27 09:58] LABS: COVID-19 Test Negative (Negative); IDNOW Serial# 152EDE1D
[2023-09-27 10:49] VITALS: BP 188/81; PULSE 53; O2SAT 95
[2023-09-27 12:56] VITALS: BP 156/72; PULSE 85; RESP 18; TEMP 36.5; O2SAT 97
--- NOTE | 2023-09-27 13:12 | MHC.CM.ED ---
Received case management consult overnight. Patient came to the ER after a fall. Work up essentially negative. Physical therapy eval completed. Home services recommended. Attempted to meet with patient in regards to discharge planning. Patient has a history of dementia and is not a good historian. Spoke with patient's /HCP, Emma, via telephone at [phone]. PCP verified. Copy of HCP obtained from [facility]. Emma agreeable to referral being broadcasted in [facility]. [facility] is able to offer a bed. Emma agreeable. Emma will transport patient home. Patient, Emma, Joanna COVINGTON and Carla LOPEZ aware. Continue to monitor for d/c needs.
== END 2023-09-27 13:19 | disposition home or self-care (01) ==
PROVIDERS: Emergency Medicine; Physician Assistant; Physician Assistant Medical; Emergency Provider Emergency Medicine; PCP Physician Assistant Medical
DX: I95.1 Orthostatic hypotension (principal); I49.8 Other specified cardiac arrhythmias; R53.1 Weakness; R51.9 Headache, unspecified; F03.90 Unspecified dementia, unspecified severity, without behavioral disturbance, psychotic disturbance, mood disturbance, and anxiety; Z91.81 History of falling; M54.2 Cervicalgia; Z79.899 Other long term (current) drug therapy
CPT/HCPCS: 36415; 70450; 72125; 80053; 81001; 83735; 84484; 85027; 85610; 87635; 93005; 96360; 96361; 97161; 99285

== ENCOUNTER → 2023-09-25 20:01 | Outpatient (BNV) | payer MEDICARE, OTHER, SELFPAY | PROVIDERS: Emergency Provider Emergency Medicine; Visit Provider Internal Medicine | DX: R55 Syncope and collapse (principal) | CPT/HCPCS: 93010 ==

== ENCOUNTER 2023-10-23 16:25 | Emergency (ER) | payer OTHER, SELFPAY ==
--- NOTE | ~2023-10-23 | CT_ITS ---
EXAMINATION: CT HEAD WITHOUT CONTRAST CLINICAL INFORMATION: Fall COMPARISON: CT head from 09/25/2023 TECHNIQUE: Contiguous axial imaging was performed from the skull base to vertex without intravenous administration of contrast. This CT examination was performed using dose optimization techniques as appropriate, variously including the following: *Automated exposure control *Adjustment of mA and/or kV according to patient size (this includes techniques or standardized protocols for targeted exams where dose is matched to indication/reason for exam; i.e. extremities or head) *Use of iterative reconstruction technique DLP: 584.81 mGy-cm FINDINGS: There is no evidence of acute intracranial hemorrhage or territorial infarction. Chronic white matter small vessel ischemic changes. Cerebral atrophy with ventricular prominence. Cavum septum pellucidum et vergae. No abnormal mass effect or midline shift is seen. Samano to white matter differentiation is well preserved. No extra-axial fluid collections are identified. The ventricles are normal in size. There is no abnormal attenuation within the brain parenchyma. The osseous structures and soft tissues are normal. The mastoid air cells and visualized portions of the paranasal sinuses are well aerated. Cerumen in the bilateral external auditory canals. CT/CT cervical spine wo IV con IMPRESSION: EXAMINATION: Noncontrast CT scan of the cervical spine. INDICATION: Fall COMPARISON: CT cervical spine from 09/25/2023 TECHNIQUE: Helical, multidetector axial images were obtained from the occiput to the upper thorax. Coronal and sagittal reformats of the cervical spine were provided for interpretation. DLP: 887 mGy-cm FINDINGS: No acute fractures or dislocations of the cervical spine are seen. Multilevel degenerative changes. Congenital nonunion of the posterior arch of C1. Anatomic alignment and positioning of the vertebral bodies and posterior elements is noted. The atlantoaxial joint and craniovertebral articulations are normal without evidence of subluxation. There is no prevertebral soft tissue swelling. Partially visualized airspace opacity in the left upper lung joseph versus volume averaging of the aortic arch. Redemonstrated right apical nodular focus measuring 6 mm. IMPRESSION: 1. No acute visible fracture or dislocation. 2. Multilevel degenerative changes. 3. Partially visualized airspace opacity in the left upper lung field versus volume averaging of the aortic arch. Redemonstrated right apical nodular focus measuring 6 mm. Follow-up as per Fleischner criteria. According to the UPDATED 2017 Fleischner Society recommendations, the advised follow-up imaging for multiple solid nodules, the largest measuring 6 mm or greater, is: HIGH RISK PATIENT: CT at 3-6 months, then at 18-24 months.
[2023-10-23 16:33] VITALS: BP 130/90; PULSE 67; O2SAT 96
[2023-10-23 16:35] VITALS: BP 155/78; PULSE 69; RESP 18; TEMP 37.2; O2SAT 96; BMI 21.6
[2023-10-23 16:41] VITALS: BP 155/78; PULSE 68; RESP 18
[2023-10-23 17:50] VITALS: BP 155/69; PULSE 89; RESP 16; TEMP 36.9; O2SAT 95
--- NOTE | 2023-10-23 18:26 | ED_ITS ---
HPI - Fall General Chief Complaint: Fall Stated Complaint: fall, 2 in lac on head, collared, dementia Time Seen by Provider: 10/23/23 18:26 Source: patient and RN notes reviewed Mode of arrival: EMS Limitations: no limitations History of Present Illness HPI Narrative: This is a 78-year-old male, with a history of dementia, who presents emergency department from home accompanied by his , with complaints of fall. Patient reports that while patient was walking he tripped over his feet and landed forward striking the top of his head. He denies loss of consciousness. He states that he is feeling well however reports that he cut the top of his head. Patient reports that he is not experiencing any dizziness, blurred vision, headaches, chest pain, shortness breast, abdominal pain, nausea, vomiting or diarrhea. He states that he remembers the entire fall and is feeling well. He would like to return home after having his incision repaired. No other complaints or concerns at this time. MD complaint: fall Onset (ago): hour(s) Fall from: standing Place fall occurred: home Loss of consciousness: none Prolonged down time: no Symptoms prior to fall: none Context: tripped/slipped Location of injury: head Related Data Home Medications ?Medication ?Instructions ?Recorded ?Confirmed atorvastatin 20 mg tablet 1 tab PO DAILY 02/10/21 09/26/23 divalproex 250 mg tablet,extended 250 mg PO BID 02/10/21 09/26/23 release 24 hr gabapentin 300 mg capsule 300 mg PO BID 09/26/23 09/26/23 melatonin 3 mg tablet 3 mg PO BEDTIME 09/26/23 09/26/23 Allergies Allergy/AdvReac Type Severity Reaction Status Date / Time No Known Allergies Allergy Verified 10/23/23 16:37 [No Known Allergies*] Review of Systems Review of Systems: Yes all other systems are reviewed and are negative Constitutional: Constitutional: Reports as per [facility] Past Medical History Attestation statement: The following information was validated with the patient. Medical History COVID-19 vaccine series completed Bipolar disorder COPD (chronic obstructive pulmonary disease) Anxiety Mood disorder Psychosis Elevated cholesterol Dementia Surgical History Hx of colonoscopy History of foot surgery Social History Social History Are you a primary progressive care manager to a significant other at home: No Do you presently have visiting nurse or other home services: No Alcohol intake: current Alcohol intake frequency: holidays/special occasions only Alcohol type: beer Patient Tobacco Use Status: Former Tobacco user Quit Date: 2019 Tobacco use type: Cigarette Smoked in Last 30 Days: No Second Hand Smoke Exposure: No Use of substances other than those prescribed or required for medical reasons: No Advance Directives: No Advance Directives Information Provided: No Physical Exam Vital Signs: Vital Signs: Last Vital Signs Temp 98.6 F 10/23/23 19:47 Pulse 69 10/23/23 19:47 Resp 17 10/23/23 19:47 BP 151/76 H 10/23/23 19:47 Pulse Ox 99 10/23/23 19:47 O2 Del Method Room Air 10/23/23 19:47 BMI result Body Mass Index 21.6 Const: General: cooperative, comfortable and no acute distress Orientation/consciousness: patient oriented x3 Limitations: no limitations HEENT: Head: Yes normal to inspection, Yes normocephalic and Yes atraumatic Ears: hearing grossly normal bilaterally General nose exam: Normal external nose present Face and sinus: Yes normal facial exam Mouth: Normal oral and palatal mucosa present, oropharynx normal and moist mucous membranes Throat: Yes posterior oropharynx normal Eyes: General: appearance normal, both eyes and all related structures Eyelids: Yes eyelids normal Conjunctivae: conjunctivae normal Sclerae: sclerae normal Pupils: Equal, round and reactive pupils present EOM: EOMs intact bilaterally Neck: Neck: Yes normal visual inspection, Yes full ROM and Yes no lymphadenopathy Lymphatic: no lymphadenopathy noted Chest: Chest palpation & inspection: normal inspection of the chest Resp: Effort & Inspection: normal respiratory effort and able to speak in complete sentences Auscultation: clear to auscultation bilaterally, no crackles, no rales, no rhonchi and no wheezes Cardio: Rate: regular rate Rhythm: regular rhythm Heart sounds: S1 normal heart sound present and S2 normal heart sound present GI: Inspection: Yes normal to inspection Skin: Other: 8 cm partial-thickness laceration noted to the crown of the head, with no active bleeding. Mildly tender to palpation. General skin exam: no rashes or lesions noted Trauma: no lacerations or abrasions Wounds: no wounds Neuro: General: patient oriented x3 and moves all extremities Cranial nerves: Yes CN's II-XII intact bilaterally and Yes Equal, round and reactive pupils present Cognition (Neuro): normal cognition Motor exam (neuro): 5/5 motor strength present throughout and Pronator motor function not present Extrem: General: Yes normal to inspection Right upper extremity: normal to inspection Left upper extremity: normal to inspection Right lower extremity: normal to inspection Left lower extremity: normal to inspection Course Reevaluation(s) Reevaluation #1: CT head and neck revealing no visible fracture, dislocation, or any abnormality seen on the brain. Discussed with patient, cervical collar removed. Patient stable for discharge. Given return precautions. He understands agrees with plan. Patient stable for discharge. Time: 19:32 Reevaluation #2: Spoke to patient's who is agreeable for discharge home. I offered case management and PT, she politely declines and feels safe for disposition. Given return precautions. Stable for d/c. Time: 20:15 Medications Administered Discontinued Medications Generic Name Dose Route Start Last Admin Trade Name Freq PRN Reason Stop Dose Admin Diphtheria/Tetanus/Acell Pertussis 0.5 ml 10/23/23 18:51 10/23/23 19:08 Diphth,Pertus(Acell),Tet Adult 0.5 Ml Syringe IM 10/23/23 18:52 0.5 ml .ONCE ONE Administration Procedures Laceration Laceration 1: Site: scalp Size (cm): 8 Description: linear Depth: simple, single layer Pre-repair: wound explored, irrigated extensively and deep structures intact Skin layer closed with: other (11 [place]) Medical Decision Making Medical Decision Making MDM Narrative: This is a 78-year-old male, with a history of dementia, who presents emergency department with complaints of head laceration secondary to mechanical fall which occurred this afternoon. On arrival, patient mildly hypertensive at 155/78, all other vital signs within normal limits. He is alert and oriented x4. He remembers the entire fall and states that this was due to tripping over his feet. He has a large 8 cm laceration noted to the crown of his head with minimal bleeding noted. He is in cervical collar. Head CT and C-spine CT was ordered. Differential diagnoses include ICH, subdural hematoma, cervical spine fracture, closed head injury. Laceration repaired with herminia, see procedure note for further detail. Patient was seen in the emergency room and was evaluated by Physical therapy and case management. He has resources at home. Differential Diagnosis Differential Diagnoses: The differential diagnosis associated with the pre sentation includes See above Admission/Observation Consideration of admission/observation: Escalation of care including admissi on/observation considered Escalation of care including admission/observation considered however given workup today not warranted at this time. Radiology Impression Discussion of test interpretation with radiology: I have reviewed the radiologist's reading. Radiologist Impression: [address] [address] [address] Scan Report Signed Patient: Mariusz Cid MR#: [id number] : 1945 Acct:[id number] Age/Sex: 78 / M ADM Date: 10/23/23 Loc: .ED Attending Dr: Ordering Physician: Kaylene Gonzalez Date of Service: 10/23/23 Procedure(s): CT head/brain wo IV con Accession Number(s): [id number] cc: Kaylene Gonzalez; Physician,Unknown ~ EXAMINATION: CT HEAD WITHOUT CONTRAST CLINICAL INFORMATION: Fall COMPARISON: CT head from 09/25/2023 TECHNIQUE: Contiguous axial imaging was performed from the skull base to vertex without intravenous administration of contrast. This CT examination was performed using dose optimization techniques as appropriate, variously including the following: *Automated exposure control *Adjustment of mA and/or kV according to patient size (this includes techniques or standardized protocols for targeted exams where dose is matched to indication/reason for exam; i.e. extremities or head) *Use of iterative reconstruction technique DLP: 584.81 mGy-cm FINDINGS: There is no evidence of acute intracranial hemorrhage or territorial infarction. Chronic white matter small vessel ischemic changes. Cerebral atrophy with ventricular prominence. Cavum septum pellucidum et vergae. No abnormal mass effect or midline shift is seen. Samano to white matter differentiation is well preserved. No extra-axial fluid collections are identified. The ventricles are normal in size. There is no abnormal attenuation within the brain parenchyma. The osseous structures and soft tissues are normal. The mastoid air cells and visualized portions of the paranasal sinuses are well aerated. Cerumen in the bilateral external auditory canals. CT/CT head/brain wo IV con IMPRESSION: EXAMINATION: Noncontrast CT scan of the cervical spine. INDICATION: Fall COMPARISON: CT cervical spine from 09/25/2023 TECHNIQUE: Helical, multidetector axial images were obtained from the occiput to the upper thorax. Coronal and sagittal reformats of the cervical spine were provided for interpretation. DLP: 887 mGy-cm FINDINGS: No acute fractures or dislocations of the cervical spine are seen. Multilevel degenerative changes. Congenital nonunion of the posterior arch of C1. Anatomic alignment and positioning of the vertebral bodies and posterior elements is noted. The atlantoaxial joint and craniovertebral articulations are normal without evidence of subluxation. There is no prevertebral soft tissue swelling. Partially visualized airspace opacity in the left upper lung joseph versus volume averaging of the aortic arch. Redemonstrated right apical nodular focus measuring 6 mm. IMPRESSION: 1. No acute visible fracture or dislocation. 2. Multilevel degenerative changes. 3. Partially visualized airspace opacity in the left upper lung field versus volume averaging of the aortic arch. Redemonstrated right apical nodular focus measuring 6 mm. Follow-up as per Fleischner criteria. According to the UPDATED 2017 Fleischner Society recommendations, the advised follow-up imaging for multiple solid nodules, the largest measuring 6 mm or greater, is: HIGH RISK PATIENT: CT at 3-6 months, then at 18-24 months. Dictated By: Keven Smith MD Discharge Plan Discharge Clinical Impression: Laceration of head without complication, Fall Patient Disposition: Home, Self-Care Instructions: Fall Prevention for Older Adults (ED), Staple Care (ED), Fall Prevention (ED), Head Laceration (ED) Additional Instructions: You were seen in the emergency department after a trip and fall. Your CT of your head and neck do not reveal any new injury. You did have a large laceration to the top of your head which was closed using 11 herminia. Please keep wound clean and dry. You may cover with dry bandage. You may use mild soap on the area to ensure that the wound is clean. Please have herminia removed in 7-10 days. You may return here or follow-up with your primary care physician. If any new or worsening symptoms occur including but not limited to worsening headache, dizziness, chest pain, shortness of breath, please return for re- evaluation. Of note, you do have a lung nodule measuring 6 mm, please follow-up with your primary care physician regarding this finding. Prescriptions: No Action atorvastatin 20 mg tablet 1 tab PO DAILY divalproex 250 mg tablet extended release 24 hr 250 mg PO BID melatonin 3 mg Tablet 3 mg PO BEDTIME gabapentin 300 mg capsule 300 mg PO BID Interventions: ED Discharge Assessment Last Done: 10/23/23 19:47 Print Language: Egyptian
[2023-10-23] MEDS: Diphth,Pertus(ACell),Tet Adult 0.5 ML SYRINGE IM (19:08)
[2023-10-23 19:09] VITALS: BP 151/76; PULSE 69; RESP 17; TEMP 37; O2SAT 99
[2023-10-23 19:47] VITALS: BP 151/76; PULSE 69; RESP 17; TEMP 37; O2SAT 99
[2023-10-23] MEDS: Bacitracin Oint 0.9 GM PACKET 1 APPL TOPICAL (20:25)
== END 2023-10-23 20:25 | disposition home or self-care (01) ==
PROVIDERS: Emergency Provider Emergency Medicine
DX: S01.01XA Laceration without foreign body of scalp, initial encounter (principal); W01.0XXA Fall on same level from slipping, tripping and stumbling without subsequent striking against object, initial encounter; F03.90 Unspecified dementia, unspecified severity, without behavioral disturbance, psychotic disturbance, mood disturbance, and anxiety; J44.9 Chronic obstructive pulmonary disease, unspecified; E78.5 Hyperlipidemia, unspecified; Y93.89 Activity, other specified; Y92.009 Unspecified place in unspecified non-institutional (private) residence as the place of occurrence of the external cause; Y99.9 Unspecified external cause status; Z79.02 Long term (current) use of antithrombotics/antiplatelets; Z79.899 Other long term (current) drug therapy; Z23 Encounter for immunization
CPT/HCPCS: 12004; 70450; 72125; 90471; 90715; 99284

== ENCOUNTER 2023-11-02 09:57 | Emergency (ER) | payer MEDICARE, OTHER, SELFPAY ==
[2023-11-02 10:05] VITALS: BP 147/58; PULSE 69; RESP 20; TEMP 37.1; O2SAT 97; BMI 21.8
--- NOTE | 2023-11-02 10:48 | ED.GENADULT ---
HPI - General Adult General Chief complaint: General Medical Stated complaint: Suture Removal Time Seen by Provider: 11/02/23 10:47 Source: patient Mode of arrival: ambulatory Limitations: no limitations History of Present Illness HPI narrative: 78-year-old male presents for suture removal, patient fell on 10/23/2023 had 11 sutures placed scalp. No complications. Denies headache, vision changes, dizziness, difficulties with gait, nausea, vomiting, abdominal pain, chest pain, shortness of breath. He reports he is just here to get them out. Related Data Home Medications ?Medication ?Instructions ?Recorded ?Confirmed atorvastatin 20 mg tablet 1 tab PO DAILY 02/10/21 09/26/23 divalproex 250 mg tablet,extended 250 mg PO BID 02/10/21 09/26/23 release 24 hr gabapentin 300 mg capsule 300 mg PO BID 09/26/23 09/26/23 melatonin 3 mg tablet 3 mg PO BEDTIME 09/26/23 09/26/23 Allergies Allergy/AdvReac Type Severity Reaction Status Date / Time No Known Allergies Allergy Verified 11/02/23 10:07 [No Known Allergies*] Review of Systems Review of Systems: Yes all other systems are reviewed and are negative [facility] Past Medical History Attestation statement: The following information was validated with the patient. Source: old records reviewed and nursing notes reviewed Medical History COVID-19 vaccine series completed Bipolar disorder COPD (chronic obstructive pulmonary disease) Anxiety Mood disorder Psychosis Elevated cholesterol Dementia Surgical History Hx of colonoscopy History of foot surgery Social History Social History Are you a primary nonfarm animal caretaker to a significant other at home: No Do you presently have visiting nurse or other home services: No Alcohol intake: current Alcohol intake frequency: holidays/special occasions only Alcohol type: beer Patient Tobacco Use Status: Former Tobacco user Quit Date: 2019 Tobacco use type: Cigarette Second Hand Smoke Exposure: No Do you have a plan to hurt others: No Plan Physical Exam ED Vital Signs: Vital Signs - 24 hr 11/02/23 10:05 Temperature 98.7 F Pulse Rate 69 Respiratory Rate 20 Blood Pressure 147/58 H Pulse Oximetry 97 Oxygen Delivery Method Room Air BMI result Body Mass Index 21.8 Course Reevaluation(s) Reevaluation #1: Sutures successfully removed. Educated patient on diagnosis and treatment plan, answered all question, patient verbalizes understanding. At this time patient will be discharged home, advised to return with new or worsening symptoms. Educated on worrisome signs and symptoms and when to return. At this time I feel comfortable discharge home. Time: 10:49 Medical Decision Making Medical Decision Making [facility] Narrative: 78-year-old male presents for suture removal, patient has sutures on his head secondary to fall on 10/23/2023 Physical exam 11 herminia to the scalp History and physical exam consistent with normal wound healing no signs of infection, abscess or wound dehiscence. Plan suture removal Differential Diagnosis Differential Diagnoses: The differential diagnosis associated with the presentation includes History and physical exam consistent with normal wound healing no signs of infection, abscess or wound dehiscence. Admission/Observation Consideration of admission/observation: Escalation of care including admission/observation considered unlikely Discharge Plan Discharge Clinical Impression: Visit for suture removal Patient Disposition: Home, Self-Care Additional Instructions: Take your medications as prescribed. If you were prescribed antibiotics today, it is important that you take your medication to their entirety, do not skip any doses, do not finish them early. Follow-up with your primary care provider this week. Return to the emergency department with new or worsening symptoms. Such as fevers, chills, chest pain, shortness of breath, nausea, vomiting, dizziness, headache, vision changes, lethargy In case of emergency call 911 Prescriptions: No Action atorvastatin 20 mg tablet 1 tab PO DAILY divalproex 250 mg tablet extended release 24 hr 250 mg PO BID melatonin 3 mg Tablet 3 mg PO BEDTIME gabapentin 300 mg capsule 300 mg PO BID Referrals: Yahir Wright PA [Primary Care Provider] - 2 days Print Language: Lithuanian
[2023-11-02 11:25] VITALS: BP 147/58; PULSE 69; RESP 20; TEMP 37.1; O2SAT 97
== END 2023-11-02 11:26 | disposition home or self-care (01) ==
PROVIDERS: Emergency Provider Emergency Medicine; PCP Physician Assistant Medical
DX: Z48.02 Encounter for removal of sutures (principal)
CPT/HCPCS: 99283

== ENCOUNTER 2023-11-18 05:56 | Outpatient (REF) | payer MEDICARE, OTHER, SELFPAY ==
[2023-11-18 06:04] LABS: MANUAL DIFF FLAG NO
[2023-11-18 06:28] LABS: Basophils Percent Auto 0.4 % (0-2); Eosinophils Absolute Auto 0.1 X10*3/uL (0.0-0.4); Eosinophils Percent Auto 1.1 % (0-4); Hematocrit 38.9 % (42.0-52.0); Hemoglobin 13.5 g/dl (14.0-18.0); Imm Gran Abs Auto 0.02 X10*3/uL (0.00-0.03); Imm Gran Pct Auto 0.2 % (0.0-0.4); Lymphocytes Absolute Auto 2.9 X10*3/uL (1.2-4.9); Mean Corpuscular HGB Conc 34.7 g/dl (31.0-36.0); Mean Corpuscular Hemoglobin 31.5 pg (27.0-33.0); Mean Corpuscular Volume 90.7 fL (80.0-98.0); Mean Platelet Volume 10.7 fL (9.4-12.4); Monocytes Absolute Auto 0.7 X10*3/uL (0.1-1.2); Neutrophils Absolute Auto 5.2 x10*3/uL (2.0-8.3); Neutrophils Percent Auto 58.3 % (45-73); Platelet Count 255 X10*3/uL (160-400); Red Blood Count 4.29 X10*6/uL (4.60-5.80); Red Cell Distribution Width 13.1 % (11.0-16.0); White Blood Count 8.9 X10*3/uL (4.8-10.8)
[2023-11-18 07:05] LABS: Alanine Aminotransferase 11 U/L (0-40); Albumin Level 3.9 g/dL (3.5-5.0); Alkaline Phosphatase 68 U/L (39-117); Anion Gap 14 (12-20); Aspartate Amino Transferase 18 U/L (5-37); Bilirubin Total 0.5 mg/dL (0.0-1.0); Blood Urea Nitrogen 11 mg/dL (9-16); Calcium 9.2 mg/dL (8.4-10.2); Carbon Dioxide 25 mmol/L (22-29); Chloride 105 mmol/L (96-108); Cholesterol 152 mg/dL (<200); Estimated Glomerular Filt Rate > 60; Glucose Random 94 mg/dL (60-115); HDL Cholesterol 55 mg/dL (>40); LDL Cholesterol Calculated 58 mg/dL (<100); Potassium 4.1 mmol/L (3.3-5.1); Sodium 140 mmol/L (135-145); Total Protein 6.9 g/dL (6.5-8.0); Triglycerides 197 mg/dL (<150)
[2023-11-18 07:16] LABS: Thyroid Stimulating Hormone 3.72 uIU/mL (0.32-4.0); Vitamin D 25-OH Total 13.2 ng/mL (>30)
[2023-11-21 08:53] LABS: TS Negative Control Passed; TS Panel A 0; TS Panel B 0; TS Positive Control Passed; TSpotTB Negative (Negative)
== END 2023-11-18 05:57 | disposition home or self-care (01) ==
LOC: HO.HSH2N 05:56
PROVIDERS: Visit Provider Internal Medicine Interventional Cardiology
DX: F03.90 Unspecified dementia, unspecified severity, without behavioral disturbance, psychotic disturbance, mood disturbance, and anxiety (principal); E78.5 Hyperlipidemia, unspecified; J44.9 Chronic obstructive pulmonary disease, unspecified
CPT/HCPCS: 36415; 80053; 80061; 82306; 84443; 85025; 86481

== ENCOUNTER 2024-01-01 09:31 | Outpatient (REF) | payer MEDICARE, OTHER, SELFPAY ==
[2024-01-01 09:57] LABS: Anion Gap 12 (12-20); Blood Urea Nitrogen 10 mg/dL (9-16); Calcium 9.2 mg/dL (8.4-10.2); Carbon Dioxide 28 mmol/L (22-29); Chloride 99 mmol/L (96-108); Estimated Glomerular Filt Rate > 60; Glucose Random 145 mg/dL (60-115); Potassium 3.6 mmol/L (3.3-5.1); Sodium 135 mmol/L (135-145)
== END 2024-01-01 09:32 | disposition home or self-care (01) ==
LOC: HO.HSH2S 09:31
PROVIDERS: Visit Provider Internal Medicine
DX: U07.1 COVID-19 (principal)
CPT/HCPCS: 36415; 80048

== ENCOUNTER 2024-02-09 08:08 | Outpatient (REF) | payer MEDICARE, OTHER, SELFPAY ==
[2024-02-09 09:10] LABS: Appearance Urine Clear; Color Urine Yellow; Glucose Urine UA Negative (Negative); Leukocyte Esterase Urine Negative (Negative); Nitrite Urine Negative (Negative); PH 7.5 (5.0-9.0); Specific Gravity - Urine <= 1.005 (1.005-1.025); Urine Blood Negative (Negative); Urine Ketones Negative (Negative); Urine Protein Negative (Neg-Trace)
== END 2024-02-09 08:09 | disposition home or self-care (01) ==
LOC: HO.HSH 08:08
PROVIDERS: Visit Provider Internal Medicine
DX: N39.0 Urinary tract infection, site not specified (principal)
CPT/HCPCS: 81003

== ENCOUNTER 2024-02-10 06:10 | Outpatient (REF) | payer MEDICARE, OTHER, SELFPAY ==
[2024-02-10 06:14] LABS: MANUAL DIFF FLAG NO
[2024-02-10 06:50] LABS: Basophils Absolute Auto 0.1 X10*3/uL (0.0-0.2); Basophils Percent Auto 0.6 % (0-2); Eosinophils Absolute Auto 0.1 X10*3/uL (0.0-0.4); Eosinophils Percent Auto 1.7 % (0-4); Hemoglobin 13.3 g/dl (14.0-18.0); Imm Gran Abs Auto 0.02 X10*3/uL (0.00-0.03); Imm Gran Pct Auto 0.2 % (0.0-0.4); Lymphocytes Absolute Auto 2.4 X10*3/uL (1.2-4.9); Lymphocytes Percent Auto 29.8 % (20-40); Mean Corpuscular HGB Conc 35.9 g/dl (31.0-36.0); Mean Corpuscular Hemoglobin 32.1 pg (27.0-33.0); Mean Corpuscular Volume 89.4 fL (80.0-98.0); Mean Platelet Volume 10.9 fL (9.4-12.4); Monocytes Absolute Auto 0.8 X10*3/uL (0.1-1.2); Monocytes Percent Auto 9.6 % (2-11); Neutrophils Absolute Auto 4.7 x10*3/uL (2.0-8.3); Neutrophils Percent Auto 58.1 % (45-73); Platelet Count 278 X10*3/uL (160-400); Red Blood Count 4.14 X10*6/uL (4.60-5.80); White Blood Count 8.1 X10*3/uL (4.8-10.8)
[2024-02-10 07:37] LABS: Erythrocyte Sedimentation Rate 5 MM/HR (0-15)
== END 2024-02-10 06:11 | disposition home or self-care (01) ==
LOC: HO.HSH2N 06:10
PROVIDERS: Visit Provider Internal Medicine
DX: M79.671 Pain in right foot (principal)
CPT/HCPCS: 36415; 85025; 85652

== ENCOUNTER 2024-03-01 06:44 | Outpatient (REF) | payer MEDICARE, OTHER, SELFPAY ==
[2024-03-01 07:32] LABS: Valproate 39.4 mcg/mL (50.0-100.0)
== END 2024-03-01 06:45 | disposition home or self-care (01) ==
LOC: HO.HSH2N 06:44
PROVIDERS: Visit Provider Internal Medicine Interventional Cardiology
DX: F39 Unspecified mood [affective] disorder (principal); Z79.899 Other long term (current) drug therapy
CPT/HCPCS: 36415; 80164

== ENCOUNTER 2024-04-09 23:24 | Emergency (ER) | payer OTHER, SELFPAY ==
--- NOTE | ~2024-04-09 | CT_ITS ---
EXAMINATION: CT CERVICAL SPINE WITHOUT CONTRAST; UNENHANCED CT OF THE HEAD. CLINICAL INFORMATION: Trauma COMPARISON: None TECHNIQUE: Routine unenhanced CT of the head with multiple coronal and sagittal reformatted images; routine unenhanced CT of the cervical spine with multiple coronal and sagittal reformatted images. This CT examination was performed using dose optimization techniques as appropriate, variously including the following: *Automated exposure control *Adjustment of mA and/or kV according to patient size (this includes techniques or standardized protocols for targeted exams where dose is matched to indication/reason for exam; i.e. extremities or head) *Use of iterative reconstruction technique DLP: 1010 mGy-cm FINDINGS: No intracranial hemorrhage, tumors or acute infarcts identified. 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 Moderate subcortical and periventricular white matter patchy hypodensities. Bilateral ocular lens replacements. Prominent extrarenal soft tissue inflammatory changes and subcutaneous changes hematoma measuring 2.7 cm in diameter centered in the right parietal region. No calvarial fractures. CT cervical spine: No fractures or acute-appearing subluxations. Multilevel intervertebral disc space narrowing and endplate osteophytosis and facet hypertrophic changes. No prevertebral fluid collections or soft tissue inflammatory changes. CT/CT cervical spine wo IV con IMPRESSION: CT head: *No acute abnormalities. *Diffuse parenchymal volume loss and chronic microangiopathic ischemic disease. CT cervical spine: *No acute abnormalities. *Multilevel advanced chronic spondylosis. Electronically signed by: Feliz Veloz MD 04/10/2024 02:12 AM EDT
--- NOTE | ~2024-04-09 | CT_ITS ---
EXAMINATION: CT CERVICAL SPINE WITHOUT CONTRAST; UNENHANCED CT OF THE HEAD. CLINICAL INFORMATION: Trauma COMPARISON: None TECHNIQUE: Routine unenhanced CT of the head with multiple coronal and sagittal reformatted images; routine unenhanced CT of the cervical spine with multiple coronal and sagittal reformatted images. This CT examination was performed using dose optimization techniques as appropriate, variously including the following: *Automated exposure control *Adjustment of mA and/or kV according to patient size (this includes techniques or standardized protocols for targeted exams where dose is matched to indication/reason for exam; i.e. extremities or head) *Use of iterative reconstruction technique DLP: 1010 mGy-cm FINDINGS: No intracranial hemorrhage, tumors or acute infarcts identified. 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 Moderate subcortical and periventricular white matter patchy hypodensities. Bilateral ocular lens replacements. Prominent extrarenal soft tissue inflammatory changes and subcutaneous changes hematoma measuring 2.7 cm in diameter centered in the right parietal region. No calvarial fractures. CT cervical spine: No fractures or acute-appearing subluxations. Multilevel intervertebral disc space narrowing and endplate osteophytosis and facet hypertrophic changes. No prevertebral fluid collections or soft tissue inflammatory changes. CT/CT head/brain wo IV con IMPRESSION: CT head: *No acute abnormalities. *Diffuse parenchymal volume loss and chronic microangiopathic ischemic disease. CT cervical spine: *No acute abnormalities. *Multilevel advanced chronic spondylosis. Electronically signed by: Feliz Veloz MD 04/10/2024 02:12 AM EDT
[2024-04-09 23:45] VITALS: BP 125/67; BP 138/82; PULSE 71; PULSE 75; RESP 18; TEMP 36.9; O2SAT 95
[2024-04-09 23:49] VITALS: BMI 21.8
[2024-04-10 00:26] LABS: MANUAL DIFF FLAG NO
[2024-04-10 00:28] LABS: Basophils Percent Auto 0.4 % (0-2); Eosinophils Absolute Auto 0.1 X10*3/uL (0.0-0.4); Eosinophils Percent Auto 1.3 % (0-4); Hematocrit 39.9 % (42.0-52.0); Imm Gran Abs Auto 0.07 X10*3/uL (0.00-0.03); Imm Gran Pct Auto 0.7 % (0.0-0.4); Lymphocytes Absolute Auto 2.5 X10*3/uL (1.2-4.9); Lymphocytes Percent Auto 25.4 % (20-40); Mean Corpuscular HGB Conc 35.1 g/dl (31.0-36.0); Mean Corpuscular Hemoglobin 31.8 pg (27.0-33.0); Mean Corpuscular Volume 90.7 fL (80.0-98.0); Mean Platelet Volume 9.6 fL (9.4-12.4); Monocytes Absolute Auto 0.9 X10*3/uL (0.1-1.2); Monocytes Percent Auto 9.2 % (2-11); Neutrophils Absolute Auto 6.3 x10*3/uL (2.0-8.3); Platelet Count 293 X10*3/uL (160-400); Red Cell Distribution Width 12.8 % (11.0-16.0)
[2024-04-10 00:41] LABS: Alanine Aminotransferase 28 U/L (0-40); Albumin Level 4.4 g/dL (3.5-5.0); Alkaline Phosphatase 67 U/L (39-117); Anion Gap 13 (12-20); Aspartate Amino Transferase 24 U/L (5-37); Bilirubin Total 0.6 mg/dL (0.0-1.0); Blood Urea Nitrogen 18 mg/dL (9-16); Calcium 9.2 mg/dL (8.4-10.2); Carbon Dioxide 27 mmol/L (22-29); Chloride 99 mmol/L (96-108); Creatinine Clr Calc Pharmacy 51.5; Estimated Glomerular Filt Rate > 60; Glucose Random 125 mg/dL (60-115); Magnesium 2.2 mg/dL (1.6-2.6); Potassium 4.3 mmol/L (3.3-5.1); Sodium 135 mmol/L (135-145); Total Protein 7.5 g/dL (6.5-8.0)
[2024-04-10] MEDS: Acetaminophen 325 MG TABLET 975 MG PO (02:01)
--- NOTE | 2024-04-10 02:19 | ED_ITS ---
HPI - Fall General Chief Complaint: Fall Stated Complaint: fall Time Seen by Provider: 04/09/24 23:49 Source: patient Limitations: other (Dementia) History of Present Illness ED Provider: Kathy Espinal PA-C HPI Narrative: 79-year-old male with a history of advanced dementia [facility]. Patient has underlying gait instability, he falls frequently. Earlier today he fell, he did not sustain an injury. However overnight, he was trying to get out of bed, subsequently fell falling backwards and struck his head. He now has a big contusion/hematoma. No loss consciousness, the patient is not on a blood thinner. No change in his baseline mentation per EMS. Related Data Home Medications ?Medication ?Instructions ?Recorded ?Confirmed atorvastatin 20 mg tablet 1 tab PO DAILY 02/10/21 09/26/23 divalproex 250 mg tablet,extended 250 mg PO BID 02/10/21 09/26/23 release 24 hr gabapentin 300 mg capsule 300 mg PO BID 09/26/23 09/26/23 melatonin 3 mg tablet 3 mg PO BEDTIME 09/26/23 09/26/23 Allergies Allergy/AdvReac Type Severity Reaction Status Date / Time No Known Allergies Allergy Verified 04/09/24 23:50 [No Known Allergies*] Review of Systems 2 Review of Systems: Unable to obtain secondary to dementia Yes all other systems are reviewed and are negative [facility] Past Medical History Attestation statement: The following information was validated with the patient. Medical History COVID-19 vaccine series completed Bipolar disorder COPD (chronic obstructive pulmonary disease) Anxiety Mood disorder Psychosis Elevated cholesterol Dementia Surgical History Hx of colonoscopy History of foot surgery Social History Social History Are you a primary field care manager to a significant other at home: No Do you presently have visiting nurse or other home services: No Alcohol intake: current Alcohol intake frequency: holidays/special occasions only Alcohol type: beer Patient Tobacco Use Status: Former Tobacco user Tobacco use type: Cigarette Second Hand Smoke Exposure: No Advance Directives: No Advance Directives Information Provided: Yes Do you have a plan to hurt others: No Plan Physical Exam 2 Vital Signs: Vital Signs: Last Vital Signs Temp 97.9 F 04/10/24 02:29 Pulse 76 04/10/24 02:29 Resp 18 04/10/24 02:29 BP 143/70 H 04/10/24 02:29 Pulse Ox 96 04/10/24 02:29 O2 Del Method Room Air 04/10/24 02:29 BMI result Body Mass Index 21.8 Const: Other: Alert, well in appearance, large contusion noted posterior scalp, no external bleed Orientation/consciousness: oriented to person Resp: Effort & Inspection: normal respiratory effort Cardio: Other: Normal peripheral perfusion Skin: Other: Warm dry no rash Neuro: General: oriented to person and gait normal Psych: Other: Cooperative Medications Administered Discontinued Medications Generic Name Dose Route Start Last Admin Trade Name Freq PRN Reason Stop Dose Admin Acetaminophen 975 mg 04/10/24 01:38 04/10/24 02:01 Acetaminophen 325 Mg Tablet PO 04/10/24 01:39 975 mg ONCE ONE Administration Medical Decision Making Medical Decision Making MDM Narrative: 79-year-old male with a history of advanced dementia [facility]. Patient has underlying gait instability, he falls frequently. Earlier today he fell, he did not sustain an injury. However overnight, he was trying to get out of bed, subsequently fell falling backwards and struck his head. He now has a big contusion/hematoma. No loss consciousness, the patient is not on a blood thinner. No change in his baseline mentation per EMS. Problem: Age, dementia , gait instability History: Per EMS I have considered the following differential diagnoses: Intracranial hemorrhage, cervical spine injury, contusion, hematoma Plan: Clearly we are scanning of the patient's head and neck. It is very reassuring that he is not altered from his baseline, he is not actively vomiting, there were no neurologic deficits to suggest intracranial hemorrhage. Furthermore, he is up and ambulatory walking around the ER, he is very redirectable, we can bring him back to his bed. Clearly he does not need imaging of his extremities. Holding on labs for now as it may not be clinically indicated. If you sustained an injury and requires intervention, I will order labs at that time. I have independently reviewed the following tests: CT/CT cervical spine wo IV con IMPRESSION: CT head: *No acute abnormalities. *Diffuse parenchymal volume loss and chronic microangiopathic ischemic disease. CT cervical spine: *No acute abnormalities. *Multilevel advanced chronic spondylosis. Electronically signed by: Feliz Veloz MD 04/10/2024 02:12 AM EDT RP Lab Data 04/10/24 00:22 04/10/24 00:22 Labs: Lab Results 04/10/24 04/10/24 Range/Units 00:22 02:14 WBC 10.0 (4.8-10.8) X10*3/uL RBC 4.40 L (4.60-5.80) X10*6/uL Hgb 14.0 (14.0-18.0) g/dl Hct 39.9 L (42.0-52.0) % MCV 90.7 (80.0-98.0) fL MCH 31.8 (27.0-33.0) pg MCHC 35.1 (31.0-36.0) g/dl RDW 12.8 (11.0-16.0) % Plt Count 293 (160-400) X10*3/uL MPV 9.6 (9.4-12.4) fL Immature Gran % (Auto) 0.7 H (0.0-0.4) % Neut % (Auto) 63.0 (45-73) % Lymph % (Auto) 25.4 (20-40) % [place] % (Auto) 9.2 (2-11) % Eos % (Auto) 1.3 (0-4) % Baso % (Auto) 0.4 (0-2) % Lymph # (Auto) 2.5 (1.2-4.9) X10*3/uL [place] # (Auto) 0.9 (0.1-1.2) X10*3/uL Eos # (Auto) 0.1 (0.0-0.4) X10*3/uL Baso # (Auto) 0.0 (0.0-0.2) X10*3/uL Abs Immat Gran (auto) 0.07 H (0.00-0.03) X10*3/uL Absolute Neuts (auto) 6.3 (2.0-8.3) x10*3/uL Absolute Nucleated RBC 0.000 (0.0-0.012) X10*3/uL Nucleated RBC % (auto) 0.0 (0.0-0.2) /100WBC Sodium 135 (135-145) mmol/L Potassium 4.3 (3.3-5.1) mmol/L Chloride 99 (96-108) mmol/L Carbon Dioxide 27 (22-29) mmol/L Anion Gap 13 (12-20) BUN 18 H (9-16) mg/dL Creatinine 0.99 (0.5-1.4) mg/dL Estim Creat Clear Calc 51.5 Estimated GFR > 60 Random Glucose 125 H (60-115) mg/dL Calcium 9.2 (8.4-10.2) mg/dL Magnesium 2.2 (1.6-2.6) mg/dL Total Bilirubin 0.6 (0.0-1.0) mg/dL AST 24 (5-37) U/L ALT 28 (0-40) U/L Alkaline Phosphatase 67 (39-117) U/L Total Protein 7.5 (6.5-8.0) g/dL Albumin 4.4 (3.5-5.0) g/dL Urine Color Yellow Urine Appearance Clear Urine pH 6.0 (5.0-9.0) Ur Specific [place] 1.020 (1.005-1.025) Urine Protein Negative (Neg-Trace) mg/dL Urine Glucose (UA) Negative (Negative) mg/dL Urine Ketones Negative (Negative) mg/dL Urine Blood Negative (Negative) Urine Nitrite Negative (Negative) Ur Leukocyte Esterase Negative (Negative) Discharge Plan Discharge Clinical Impression: Contusion of scalp Patient Disposition: Home, Self-Care Instructions: Scalp Contusion in Adults (ED) Additional Instructions: CT scans of your head and neck were negative for acute injury. You sustained a contusion, this is the big bump on the back of your head. See home care instructions. Call your doctor for a follow up appointment Prescriptions: No Action atorvastatin 20 mg tablet 1 tab PO DAILY divalproex 250 mg tablet extended release 24 hr 250 mg PO BID melatonin 3 mg Tablet 3 mg PO BEDTIME gabapentin 300 mg capsule 300 mg PO BID Discharge Date/Time: 04/10/24 05:00 Print Language: Tamazight
[2024-04-10 02:26] LABS: Appearance Urine Clear; Color Urine Yellow; Glucose Urine UA Negative (Negative); Leukocyte Esterase Urine Negative (Negative); Nitrite Urine Negative (Negative); Urine Blood Negative (Negative); Urine Ketones Negative (Negative); Urine Protein Negative (Neg-Trace)
[2024-04-10 02:29] VITALS: BP 143/70; PULSE 76; RESP 18; TEMP 36.6; O2SAT 96
--- NOTE | 2024-04-10 03:28 | PC.NURSE ---
Report to [facility]
== END 2024-04-10 05:00 | disposition home or self-care (01) ==
PROVIDERS: Physician Assistant Medical; Emergency Provider Emergency Medicine Emergency Medical Services
DX: S00.03XA Contusion of scalp, initial encounter (principal); W06.XXXA Fall from bed, initial encounter; Z91.81 History of falling; Y93.89 Activity, other specified; Y92.122 Bedroom in nursing home as the place of occurrence of the external cause; Y99.9 Unspecified external cause status
CPT/HCPCS: 36415; 70450; 72125; 80053; 81003; 83735; 85025; 99283; 99284

== ENCOUNTER 2024-04-14 06:08 | Outpatient (REF) | payer MEDICARE, OTHER, SELFPAY ==
[2024-04-14 11:44] LABS: MANUAL DIFF FLAG NO
[2024-04-14 11:48] LABS: Basophils Percent Auto 0.5 % (0-2); Eosinophils Absolute Auto 0.1 X10*3/uL (0.0-0.4); Eosinophils Percent Auto 1.7 % (0-4); Imm Gran Abs Auto 0.04 X10*3/uL (0.00-0.03); Imm Gran Pct Auto 0.5 % (0.0-0.4); Lymphocytes Absolute Auto 1.6 X10*3/uL (1.2-4.9); Lymphocytes Percent Auto 19.4 % (20-40); Mean Corpuscular HGB Conc 35.1 g/dl (31.0-36.0); Mean Corpuscular Hemoglobin 32.4 pg (27.0-33.0); Mean Corpuscular Volume 92.3 fL (80.0-98.0); Mean Platelet Volume 10.9 fL (9.4-12.4); Monocytes Absolute Auto 0.8 X10*3/uL (0.1-1.2); Neutrophils Absolute Auto 5.7 x10*3/uL (2.0-8.3); Neutrophils Percent Auto 67.9 % (45-73); Platelet Count 319 X10*3/uL (160-400); Red Blood Count 4.01 X10*6/uL (4.60-5.80); Red Cell Distribution Width 13.2 % (11.0-16.0); White Blood Count 8.4 X10*3/uL (4.8-10.8)
[2024-04-14 12:01] LABS: Anion Gap 12 (12-20); Blood Urea Nitrogen 14 mg/dL (9-16); Calcium 9.3 mg/dL (8.4-10.2); Carbon Dioxide 26 mmol/L (22-29); Chloride 105 mmol/L (96-108); Estimated Glomerular Filt Rate > 60; Glucose Random 115 mg/dL (60-115); Potassium 3.9 mmol/L (3.3-5.1); Sodium 139 mmol/L (135-145)
== END 2024-04-14 06:09 | disposition home or self-care (01) ==
LOC: HO.HSH2N 06:08
PROVIDERS: Visit Provider Nurse Practitioner Acute Care
DX: F03.90 Unspecified dementia, unspecified severity, without behavioral disturbance, psychotic disturbance, mood disturbance, and anxiety (principal); Z91.81 History of falling
CPT/HCPCS: 36415; 80048; 85025

== ENCOUNTER 2024-11-30 06:55 | Outpatient (REF) | payer MEDICARE, OTHER, SELFPAY ==
[2024-11-30 07:01] LABS: MANUAL DIFF FLAG NO
[2024-11-30 07:19] LABS: Basophils Percent Auto 0.5 % (0-2); Eosinophils Absolute Auto 0.2 X10*3/uL (0.0-0.4); Eosinophils Percent Auto 2.4 % (0-4); Hematocrit 42.8 % (42.0-52.0); Hemoglobin 14.8 g/dl (14.0-18.0); Imm Gran Abs Auto 0.03 X10*3/uL (0.00-0.03); Imm Gran Pct Auto 0.4 % (0.0-0.4); Lymphocytes Absolute Auto 2.1 X10*3/uL (1.2-4.9); Lymphocytes Percent Auto 24.9 % (20-40); Mean Corpuscular HGB Conc 34.6 g/dl (31.0-36.0); Mean Corpuscular Hemoglobin 31.2 pg (27.0-33.0); Mean Corpuscular Volume 90.3 fL (80.0-98.0); Monocytes Absolute Auto 0.7 X10*3/uL (0.1-1.2); Monocytes Percent Auto 8.1 % (2-11); Neutrophils Absolute Auto 5.4 x10*3/uL (2.0-8.3); Neutrophils Percent Auto 63.7 % (45-73); Platelet Count 333 X10*3/uL (160-400); Red Blood Count 4.74 X10*6/uL (4.60-5.80); Red Cell Distribution Width 12.8 % (11.0-16.0); White Blood Count 8.5 X10*3/uL (4.8-10.8)
[2024-11-30 07:27] LABS: Valproate 24.7 mcg/mL (50.0-100.0)
[2024-11-30 07:37] LABS: Alanine Aminotransferase 24 U/L (0-40); Albumin Level 4.4 g/dL (3.5-5.0); Alkaline Phosphatase 69 U/L (39-117); Anion Gap 12 (12-20); Aspartate Amino Transferase 27 U/L (5-37); Bilirubin Total 0.6 mg/dL (0.0-1.0); Blood Urea Nitrogen 15 mg/dL (9-16); Calcium 9.6 mg/dL (8.4-10.2); Carbon Dioxide 27 mmol/L (22-29); Chloride 106 mmol/L (96-108); Cholesterol 154 mg/dL (<200); Estimated Glomerular Filt Rate > 60; Glucose Random 95 mg/dL (60-115); HDL Cholesterol 41 mg/dL (>40); LDL Cholesterol Calculated 81 mg/dL (<100); Potassium 4.2 mmol/L (3.3-5.1); Sodium 141 mmol/L (135-145); Total Protein 7.5 g/dL (6.5-8.0); Triglycerides 164 mg/dL (<150)
[2024-11-30 07:39] LABS: Estimated Average Glucose 120 mg/dL; Hemoglobin A1C 154.1158 umol/L; Hemoglobin A1c % 5.8 % (<6.0); Total Hemoglobin (HGBA1C) 3884.3303 umol/L
[2024-11-30 07:53] LABS: Vitamin D 25-OH Total 42.8 ng/mL (>30)
== END 2024-11-30 06:56 | disposition home or self-care (01) ==
LOC: HO.HSH3E 06:55
PROVIDERS: Visit Provider Nurse Practitioner Acute Care
DX: G30.9 Alzheimer's disease, unspecified (principal); E78.00 Pure hypercholesterolemia, unspecified; E11.9 Type 2 diabetes mellitus without complications; Z51.81 Encounter for therapeutic drug level monitoring
CPT/HCPCS: 36415; 80053; 80061; 80164; 82306; 83036; 85025

== ENCOUNTER 2025-05-21 06:45 | Outpatient (REF) | payer MEDICARE, OTHER, SELFPAY ==
[2025-05-21 06:48] LABS: MANUAL DIFF FLAG NO
--- OUTSIDE RECORDS SUMMARY | 2025-05-21 06:48 | XMS_ITS ---
Author Organization 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 (CMS/[facility] V24, CMS/HCC V28) 03/01/2025 Cancer Staging:Clinical stage from 03/26/2025:Stage IA2(cT1b, cN0, cM0) - Signed by Dann Francisco MD on 03/26/2025 Hyperlipidemia 04/25/2024 Depression 04/25/2024 Overview (03/23/2025): Aug 06, 2020 Entered By: MAYUR PRUITT Comment: reviewedDec 2020 Entered By: MAYUR PRUITT Comment: reviewedDec 2021 Entered By: MAYUR PRUITT Comment: reviewed Frequency of micturition 04/25/2024 Hallux valgus (acquired), right foot 04/25/2024 Heavy tobacco smoker 04/25/2024 Major depressive disorder, r ecurrent, unspecified (CMS/HCC V24) 04/25/2024 Other abnormalities of gait and mobility 024 Prediabetes 04/25/2024 Overview (03/23/2025): Aug 02, 2023 Entered By: SREEKANTH CARRINGTON Comment: prediabe Primary localized osteoarthrosis of ankle and fo ot 04/25/2024 COPD (chronic obstructive pu lmonary disease) ([facility] V24, [facility] V28) 03/08/2024 Pulmonary nodule 01/27/2024 Dementia ([facility] V24, [facility] V28) 06/23/2022 Parkinsonism ([facility] V24, [facility] V28) 06/23/20 Tremor of both hands 01/12/2019 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 Past Treatment and Therapy Plans No past plan information found. Current Radiation Episodes * Radiation Therapy: LungOverview* First Treatment Date Latest Treatment Date Treatment Site Technique Goal Episode Provider 04/23/2025 05/04/2025 Lung Curative Dann Francisco MD * Linked Problems Treatment Courses* Course 1 04/23/2025 - 05/04/2025 Treatment Sites Treatment Period Fraction Dose Fractions Total Dose RUL SBRT 04/23/2025 - 05/04/2025 1,000 / 1,000 cGy 5,000 / 5,000 cGy Resolved Problems Problem Noted Date Diagnosed Date Resolved Date Basal cell carcinoma of skin 12/10/2011 05/02/2025 Overview (04/25/2024): BCC 12/14 forehead x 3, scalp and back (nodular)
--- OUTSIDE RECORDS SUMMARY | 2025-05-21 06:49 | XMS_ITS | Clinical Summary ---
Author Organization [facility] Address [address] [place] [address] Phone Care Team Providers Care Bullet Slugs Inspector Name Role Phone Gildardo Perez MD Primary Care Provider Allergies Active Allergy Reactions Criticality Noted Date Comments Aripiprazole Other 09/23/2017 Extraparametal side effects Medications atorvastatin (LIPITOR) 20 mg tablet Take 1 tablet (20 mg total) by mouth 1 (one) time each day. 10/17/19 20 Active gabapentin (NEURONTIN) 100 mg capsule 2 capsules (200 mg total) 2 (two) times a day. 10/18/19 24 Active melatonin 3 mg tablet extended release Take 1 tablet by mouth. 11/12/19 24 Active ibuprofen (ADVIL,MOTRIN) 200 mg tablet Take 4 tablets (800 mg total) by mouth. 11/21/19 17 Active senna (SENOKOT) 8.6 mg tablet Take 1 tablet (8.6 mg total) by mouth if needed for constipation. Active clonazePAM (KlonoPIN) 0.5 mg tablet Take 1 tablet (0.5 mg total) by mouth 2 (two) times a day. Active mirtazapine (REMERON TROY-TAB) 15 mg disintegrating tablet Dissolve 1 tablet (15 mg total) on top of the tongue at bedtime. Active divalproex (DEPAKOTE) [address] tablet Take 1 tablet (500 mg total) by mouth 2 (two) times a day. Do not crush, chew, or split. Active lactulose (CHRONULAC) solutionIndication s:constipation Take by mouth 1 (one) time each day if needed. Active acetaminophen (TYLENOL) 325 mg tablet Take 2 tablets (650 mg total) by mouth every 8 (eight) hours if needed for mild pain. Active amLODIPine (NORVASC) 5 mg tablet Take by mouth 1 (one) time each day. Active bisacodyL (DULCOLAX) 5 mg EC tablet Take 2 tablets (10 mg total) by mouth 1 (one) time each day if needed for constipation. Do not crush, chew, or split. Active cholecalciferol (Vitamin D3) 25 mcg (1,000 unit) tablet Take 1 tablet (1,000 Units total) by mouth 1 (one) time each day. Active ipratropium-albute roL (DUONEB) 0.5-2.5 mg/3 mL nebulizer solution Take 3 mL by nebulization every 6 (six) hours if needed for wheezing. Active guaifen/dextrometh orphan/PE (GUIAFEN II DM ORAL) Take 5 mL by mouth 3 (three) times a day if needed. Active Active Problems Problem Noted Date Diagnosed Date Acquired hammer toe of left foot 03/23/2025 Other hammer toe(s) (acquired), right foot 03/23 Alcohol abuse 03/23/2025 Neuropathy 03/23/2025 TIA (transient ischemic attack) 03/23/2025 Tinea unguium 03/23/2025 Primary cancer of right uppe r lobe of lung (CMS/HCC V24, CMS/HCC V28) 03/01/2025 Cancer Staging:Clinical stage [...] 04/25/2024 Major depressive disorder, r ecurrent, unspecified ([facility] V24) 04/25/2024 Other abnormalities of gait and mobility 024 Prediabetes 04/25/2024 Overview (03/23/2025): Aug 02, 2023 Entered By: SREEKANTH CARRINGTON Comment: prediabe Primary localized osteoarthrosis of ankle and fo ot 04/25/2024 COPD (chronic obstructive pu lmonary disease) ([facility] V24, [facility] V28) 03/08/2024 Pulmonary nodule 01/27/2024 Dementia ([facility] V24, [facility] V28) 06/23/2022 Parkinsonism ([facility] V24, [facility] V28) 06/23/20 Tremor of both hands 01/12/2019 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 Radiation Oncology [address] [place] [phone] Alisson Romero NP Primary cancer of right upper lobe of lung ([facility] V24, [facility] V28) (Primary Dx) Discharge Disposition: Home or Self Care 05/04/2025 11:02 AM EDT - 05/04/2025 11:59 PM EDT Hospital Encounter [facility] Radiation Oncology [address] [place] [phone] Stan Del Castillo MD Discharge Disposition: Home or Self Care 05/02/2025 3:35 PM EDT - 05/02/2025 11:59 PM EDT Hospital Encounter [facility] Radiation Oncology [address] [place] [phone] Hipolito Salazar MD Malignant neoplasm of upper lobe of right lung (CMS/HCC V24, CMS/HCC V28) (Primary Dx) Discharge Disposition: Home or Self Care 05/02/2025 2:51 PM EDT - 05/02/2025 11:59 PM EDT Hospital Encounter [facility] Radiation Oncology [address] [place] [phone] Hipolito Salazar MD Discharge Disposition: Home or Self Care 04/30/2025 10:35 AM EDT - 04/30/2025 11:59 PM EDT Hospital Encounter [facility] Radiation Oncology [address] [place] [phone] Stan Del Castillo MD Malignant neoplasm of upper lobe of right lung (CMS/HCC V24, CMS/HCC V28) (Primary Dx) Discharge Disposition: Home or Self Care 04/25/2025 1:40 PM EDT - 04/25/2025 11:59 PM EDT Hospital Encounter [facility] Radiation Oncology [address] [place] [phone] Hipolito Salazar MD Malignant neoplasm of hilus of right lung (CMS/HCC V24, CMS/HCC V28) (Primary Dx) Discharge Disposition: Home or Self Care 04/23/2025 1:50 PM EDT - 04/23/2025 11:59 PM EDT Hospital Encounter [facility] Radiation Oncology [address] [place] [phone] Hipolito Salazar MD Malignant neoplasm of upper lobe of right lung (CMS/HCC V24, CMS/HCC V28) (Primary Dx) Discharge Disposition: Home or Self Care 04/23/2025 1:25 PM EDT - 04/23/2025 11:59 PM EDT Hospital Encounter [facility] Radiation Oncology [address] [place] [phone] Dann Francisco MD Malignant neoplasm of upper lobe of right lung (CMS/HCC V24, CMS/HCC V28) (Primary Dx) Discharge Disposition: Home or Self Care 04/18/2025 9:14 AM EDT - 04/18/2025 11:59 PM EDT Hospital Encounter [facility] Radiation Oncology [address] [place] [phone] Discharge Disposition: Home or Self Care 04/09/2025 9:53 AM EDT - 04/09/2025 11:59 PM EDT Hospital Encounter [facility] Radiation Oncology [address] [place] [phone] Dann Francisco MD Primary cancer of right upper lobe of lung (CMS/HCC V24, CMS/HCC V28) Discharge Disposition: Home or Self Care 04/09/2025 8:55 AM EDT - 04/09/2025 11:59 PM EDT Hospital Encounter [facility] Radiation Oncology [address] [place] [phone] Primary cancer of right upper lobe of lung (CMS/HCC V24, CMS/HCC V28) (Primary Dx) Discharge Disposition: Home or Self Care 03/26/2025 8:18 AM EDT - 03/26/2025 11:59 PM EDT Hospital Encounter [facility] Radiation Oncology [address] [place] [phone] Dann Francisco MD Primary cancer of right upper lobe of lung (CMS/HCC V24, CMS/HCC V28) Discharge Disposition: Home or Self Care 03/26/2025 8:18 AM EDT - 03/26/2025 11:59 PM EDT Hospital Encounter [facility] Radiation Oncology [address] [place] [phone] Discharge Disposition: Home or Self Care 03/23/2025 [facility] Radiation Oncology [address] [place] [phone] Cynthia Sol [place] 03/09/2025 9:35 AM EDT - 03/09/2025 11:59 PM EDT Hospital Encounter [facility] PET Scan [address] [place] [address] [place] [phone] Primary cancer of right upper lobe of lung ([facility]/HCC V24, [facility]/HCC V28) Discharge Disposition: Home or Self Care 03/09/[address] [facility] Radiation Oncology [address] [place] [phone] [place], [place] 03/01/2025 11:15 AM EDT Office Visit Thoracic Surgery - [place] [address] [phone] Lizzy Horn MD Primary cancer of right upper lobe of lung ([facility]/HCC V24, [facility]/HCC V28) (Primary Dx) 02/23/2025 3:56 PM EDT Anesthesia Event [facility] Main OR [address] [place] [phone] Alan Mcelroy DO Walsh, Michael, DO 02/23/2025 3:30 PM EDT - 02/23/2025 5:[address] [facility] Main OR [address] [place] [phone] Lizzy Horn MD Navigation bronchoscopy/EBUS with biopsies [00716 (CPT ) +5 more] 02/23/2025 2:09 PM EDT - 02/23/2025 7:15 PM EDT Hospital Encounter [facility] Main OR [address] [place] [phone] Lizzy Horn MD Pulmonary nodule Discharge Disposition: Home or Self Care 02/23/2025 6:30 AM EDT - 02/23/2025 11:59 PM EDT Hospital Encounter [facility] Xray [address] [place] [phone] Pain Discharge Disposition: Home or Self Care 02/20/2025 Telephone Pulmonology - [place] [address] [phone] Meena Zhu, NADYA from Last 3 Months Immunizations Immunization Administration Dates Next Due Influenza Quadravalent, 0.5m l (Fluzone High-dose) 65yo and older 03/02/2020,04/25/2018,04/18/2014,04/18 Influenza trivalent, 0.5mL ( Fluad) 65yo and older 04/07/2017 Influenza trivalent, 0.5mL, preservative free (Fluarix; FluLaval; Fluzone) ages 6mo and older (Afluria) 3 years and older 07/01/2016,04/22/2015,04/22/2011 Pneumococcal conjugate 13 va lent (Prevnar 13, PCV13) 2mo and older 11/16/2014 Pneumococcal polysaccharide 23 valent (Pneumovax 23) 2yo and older 07/04/2013 Td Tetanus diptheria (Tdvax) 7yo and older 06/23/2022,06/06/2001 Tdap Tetanus diptheria acell ular pertussis (Boostrix; Adacel) 7yo and older 06/23/2012 Zoster Live 01/17/2012 Surgical History Surgery Date Site/Laterality Comments OTHER SURGICAL HISTORY PROCEDURE: HISTORY OTHER; COMMENT: 2 surgeries on rt foot TONSILLECTOMY PROCEDURE: HISTORICAL TONSILLECTOMY COLONOSCOPY 11/10/2016 PROCEDURE: HISTORICAL COLONOSCOPY; COMMENT: 5 mm right colon polyp: Tubular adenoma. OTHER SURGICAL HISTORY 02/23/2025 Left JOVAN Navigational Bronch BRONCHOSCOPY 02/23/2025 Navigation bronchoscopy/EBUS with bx Medical History Medical History Date Comments Hyperlipidemia DX:Hyperlipidemi a Bursitis of shoulder 11/09/2008 DX:Bursitis of shoulder Foot pain 11/09/2008 DX:Foot pain Basal cell carcinoma of skin 12/10/2011 DX: Basal cell carcinoma of skin History of colonic polyps 05/09/2017 DX:His tory of colonic polyps AD (Alzheimer's disease) ( [facility] V24, [facility] V28) BPH (benign prostatic hyperplasia) Anxiety COPD (chronic obstructive pu lmonary disease) ([facility] V24, [facility] V28) Depression Pulmonary nodule 02/23/2025 JOVAN Family History Relation Name Status Comments Father (Age 62) heart no s ibs Mother (Age 62) heart Social History Tobacco Use Types Packs/Day Years Used Date Smoking Tobacco: Former Cigarettes 1 Q uit: 07/05/2019 Smokeless Tobacco: Current Tobacco Cessation:Ready to Q uit: Not Asked; Counseling Given: Not Answered Alcohol Use Standard Drinks/Week Comments Not Asked 0 (1 standard drink = 0.6 oz pur e alcohol) Interpersonal Safety Answer Date Record ed Physical Abuse Unrecognized value 02/23/2025 Verbal Abuse Unrecognized value 02/23/2025 Sex and Gender Information Value Date Recorded Sex Assigned at Male 10/10/2024 11:00 AM EDT Legal Sex Male 1:47 PM EST Gender Identity Male 10/10/2024 11:00 AM EDT Sexual Orientation Straight 10/10/2024 11 :00 AM EDT Obstetrics History Last Filed Vital Signs Vital Sign Reading Time Taken Comments Blood Pressure 132/57 03/26/2025 8:39 AM EDT Pulse 71 03/26/2025 8:39 AM EDT Temperature 36.2 C (97.2 F) 03/26/2025 8:39 AM EDT Respiratory Rate 16 03/26/2025 8:39 AM EDT Oxygen Saturation 99% 03/26/2025 8:39 AM EDT Inhaled Oxygen Concentration - - Weight 67 kg (147 lb 9.6 oz) 03/26/2025 8:39 AM EDT Height 168.9 cm (5' 6.5 ) 03/26/2025 8:39 AM EDT Body Mass Index 23.47 03/26/2025 8:39 AM EDT Plan of Treatment Upcoming Encounters Date Type Department Care Team (Late st Contact Info) Description 06/08/2025 10:[address] [facility] Radiation Oncology [address] [place] [phone] Alisson Romero NP [address] [place] [address] Health Maintenance Due Date Last Done Comments Colorectal Cancer Screening: Colonoscopy 1945 Zoster Vaccines (1 of 2) 03/13/2012 01/17/2012 Cholesterol Screening (Lipid Panel) 06/13/2022 Medicare Annual Wellness Visit 06/13/2022 Social Influencers of Health Screening 06/13/2022 Depression Screening 07/05/2024 COVID-19 Vaccine ( season) 2025 03/24/2023, 04/01/2022, 10/03/2021, Additional history exists Influenza Vaccine (#1) 2025 , 03/05/2024, 03/24/2023, Additional history exists Falls Risk Assessment 02/23/2026 02/23/2025 DTaP,Tdap,and Td Vaccines (5 - Td or Tdap) 10/22/2033 10/23/2023, 06/23/2022, 06/23/2012, Additional history exists Pneumococcal Vaccine: 50+ Years Completed 07/30/2022, 11/16/2014, 07/04/2013 RSV Immunization Adult Patients Completed 07/08/2023 Hepatitis A Vaccines Completed 02/14/2024, 09/03/2023, 08/02/2023 HIB Vaccines Aged Out No longer eligi ble based on patient's age to complete this topic HPV Vaccines Aged Out No longer eligi ble based on patient's age to complete this topic Hepatitis B Vaccines Aged Out No long er eligible based on patient's age to complete this topic IPV Vaccines Aged Out No longer eligi ble based on patient's age to complete this topic MMR Vaccines Aged Out No longer eligi ble based on patient's age to complete this topic Meningococcal ACWY Vaccine Aged Out N o longer eligible based on patient's age to complete this topic Meningococcal B Vaccine Aged Out No l onger eligible based on patient's age to complete this topic RSV Immunization Patients Under 20 months Aged Out No longer eligible based on patient's age to complete this topic Varicella Vaccines Aged Out No longer eligible based on patient's age to complete this topic Procedures Procedure Name Priority Date/Time Associated Diagnosis Comments RAD ONC MSQ TREATMENT SUMMARY Routine 05/04/2025 11:45 AM EDT RAD ONC MSQ TREATMENT SUMMARY Routine 05/02/2025 3:40 PM EDT RAD ONC MSQ TREATMENT SUMMARY Routine 04/30/2025 11:05 AM EDT RAD ONC MSQ TREATMENT SUMMARY Routine 04/25/2025 2:11 PM EDT RAD ONC MSQ TREATMENT SUMMARY Routine 04/23/2025 2:[address] SKULL TO MID THIGH INITIAL Routine 03/09/2025 12:30 PM EDT Primary cancer of right upper lobe of lung (CMS/HCC V24, CMS/HCC V28) XR CHEST 1 VIEW STAT 02/23/2025 6:47 PM EDT XR CHEST 1 VIEW Routine 02/23/2025 4:53 PM EDT Pain ..CONCENTRATION Routine 02/23/2025 4:45 PM EDT Pulmonary nodule ACID FAST BACILLI STAIN Routine 02/23/2025 4:45 PM EDT Pulmonary nodule CULTURE, AFB AND SMEAR WITH REFLEX TO IDENTIFICATION AND SUSCEPTIBILITY Routine 02/23/2025 4:45 PM EDT Pulmonary nodule CULTURE FUNGAL, OTHER Routine 02/23/2025 4:45 PM EDT Pulmonary nodule TISSUE EXAM Routine 02/23/2025 4:41 PM EDT Pulmonary nodule NON-GYNECOLOGIC CYTOLOGY Routine 02/23/2025 4:39 PM EDT Pulmonary nodule TH AN ENDOTRACHEAL(NO CHARGE) Routine 02/23/2025 4:15 PM EDT MN CORE NDL BX LNG/MED PERQ 02/23/2025 3:56 PM EDT Pulmonary nodule Case Notes cytology Special Needs Outpt,cyt MN BRONCHOSCOPY INCL FLUORO GUIDANCE W BRONCHIAL/ENDOBRONCHI AL BX SGL/MULT 02/23/2025 3:56 PM EDT Pulmonary nodule Case Notes cytology Special Needs Outpt,cyt MN BRONCHOSCOPY RIGID/FLEXIBLE W/TRANSBRONCHIAL LUNG BIOPSY(S) SINGLE LOBE 02/23/2025 3:56 PM EDT Pulmonary nodule Case Notes cytology Special Needs Outpt,cyt MN BRONCHOSCOPY RIGID/FLEXIBLE COMPUTER ASSISTED IMAGE GUIDED NAVIGATION 02/23/2025 3:56 PM EDT Pulmonary nodule Case Notes cytology Special Needs Outpt,cyt MN BRONCHOSCOPY INCL FLUOROSCOPIC GUID W EBUS DURING PERIPHERAL LESION 02/23/2025 3:56 PM EDT Pulmonary nodule Case Notes cytology Special Needs Outpt,cyt MN BRONCHOSCOPY INCL FLUROSCOPIC GUIDANCE W PLCMNT FIDUCIAL MARKER SGL/MULT 02/23/2025 3:56 PM EDT Pulmonary nodule Case Notes cytology Special Needs Outpt,cyt CBC WITH AUTO DIFFERENTIAL Routine 02/19/2025 1:36 PM EDT Pulmonary nodule BASIC METABOLIC PANEL Routine 02/19/2025 1:36 PM EDT Pulmonary nodule CBC AND DIFFERENTIAL Routine 02/19/2025 1:36 PM EDT Pulmonary nodule PROTHROMBIN TIME WITH INR Routine 02/19/2025 1:36 PM EDT Pulmonary nodule Neoplasm ACTIVATED PARTIAL THROMBOPLASTIN TIME Routine 02/19/2025 1:36 PM EDT Pulmonary nodule Neoplasm TYPE AND SCREEN Routine 02/19/2025 1:36 PM EDT Pulmonary nodule from Last 3 Months Results * Rad Onc Msq Treatment Summary (05/04/2025 11:45 AM EDT) Treatment Site RUL SBRT MOSAI Q RADIATION ONCOLOGY Course Number 1 MOSAIQ RADIATION ONCOLOGY Prescribed Fractional Dose 1,000 cGray MOSAIQ RADIATION ONCOLOGY Prescribed Total Dose 5,000 cGray MOSAIQ RADIATION ONCOLOGY Actual Fractions Delivered 5 MOSAIQ RADIATION ONCOLOGY Actual Session Delivered Dose 1,000 cGray MOSAIQ RADIATION ONCOLOGY Actual Total Dose 5,000 cGray MOSAIQ RADIATION ONCOLOGY Prescribed Technique SBRT VMAT MOSAIQ RADIATION ONCOLOGY Elapsed Days 11 MOSAIQ RADIATION ONCOLOGY Start Date 04/23/2025 MOSAIQ RADIATION ONCOLOGY Last Date 05/04/2025 MOSAIQ RADIATION ONCOLOGY Prescribed Number of Fractions 5 MOSAIQ RADIATION ONCOLOGY 05/04/2025 11:4 5 AM EDT us Physician Radiation Oncology RADIATION ONCOLO GY ORDERABLES Final Result MOSAIQ RADIATION ONCOLOGY * Rad Onc Msq Treatment Summary (05/02/2025 3:40 PM EDT) Pathologist [facility] Treatment Site [facility] SBRT MOSAI Q RADIATION ONCOLOGY Course Number 1 MOSAIQ RADIATION ONCOLOGY Prescribed Fractional Dose 1,000 cGray MOSAIQ RADIATION ONCOLOGY Prescribed Total Dose 5,000 cGray MOSAIQ RADIATION ONCOLOGY Actual Fractions Delivered 4 MOSAIQ RADIATION ONCOLOGY Actual Session Delivered Dose 1,000 cGray MOSAIQ RADIATION ONCOLOGY Actual Total Dose 4,000 cGray MOSAIQ RADIATION ONCOLOGY Prescribed Technique SBRT VMAT MOSAIQ RADIATION ONCOLOGY Elapsed Days 9 MOSAIQ RADIATION ONCOLOGY Start Date 04/23/2025 MOSAIQ RADIATION ONCOLOGY Last Date 05/02/2025 MOSAIQ RADIATION ONCOLOGY Prescribed Number of Fractions 5 MOSAIQ RADIATION ONCOLOGY 05/02/2025 3:40 PM EDT Physician Radiation Oncology RADIATION ONCOLO GY ORDERABLES Final Result MOSAIQ RADIATION ONCOLOGY * Rad Onc Msq Treatment Summary (04/30/2025 11:05 AM EDT) Pathologist [facility] Treatment Site [facility] SBRT MOSAI Q RADIATION ONCOLOGY Course Number 1 MOSAIQ RADIATION ONCOLOGY Prescribed Fractional Dose 1,000 cGray MOSAIQ RADIATION ONCOLOGY Prescribed Total Dose 5,000 cGray MOSAIQ RADIATION ONCOLOGY Actual Fractions Delivered 3 MOSAIQ RADIATION ONCOLOGY Actual Session Delivered Dose 1,000 cGray MOSAIQ RADIATION ONCOLOGY Actual Total Dose 3,000 cGray MOSAIQ RADIATION ONCOLOGY Prescribed Technique SBRT VMAT MOSAIQ RADIATION ONCOLOGY Elapsed Days 7 MOSAIQ RADIATION ONCOLOGY Start Date 04/23/2025 MOSAIQ RADIATION ONCOLOGY Last Date 04/30/2025 MOSAIQ RADIATION ONCOLOGY Prescribed Number of Fractions 5 MOSAIQ RADIATION ONCOLOGY 04/30/2025 11:0 5 AM EDT Physician Radiation Oncology RADIATION ONCOLIVIA GY ORDERABLES Final Result MOSAIQ RADIATION ONCOLOGY * Rad Onc Msq Treatment Summary (04/25/2025 2:11 PM EDT) Pathologist [facility] Treatment Site [facility] SBRT MOSAI Q RADIATION ONCOLOGY Course Number 1 MOSAIQ RADIATION ONCOLOGY Prescribed Fractional Dose 1,000 cGray MOSAIQ RADIATION ONCOLOGY Prescribed Total Dose 5,000 cGray MOSAIQ RADIATION ONCOLOGY Actual Fractions Delivered 2 MOSAIQ RADIATION ONCOLOGY Actual Session Delivered Dose 1,000 cGray MOSAIQ RADIATION ONCOLOGY Actual Total Dose 2,000 cGray MOSAIQ RADIATION ONCOLOGY Prescribed Technique SBRT VMAT MOSAIQ RADIATION ONCOLOGY Elapsed Days 2 MOSAIQ RADIATION ONCOLOGY Start Date 04/23/2025 MOSAIQ RADIATION ONCOLOGY Last Date 04/25/2025 MOSAIQ RADIATION ONCOLOGY Prescribed Number of Fractions 5 MOSAIQ RADIATION ONCOLOGY 04/25/2025 2:11 PM EDT Physician Radiation Oncology RADIATION ONCOLO GY ORDERABLES Final Result MOSAIQ RADIATION ONCOLOGY * Rad Onc Msq Treatment Summary (04/23/2025 2:17 PM EDT) Treatment Site RUL SBRT MOSAI Q RADIATION ONCOLOGY Course Number 1 MOSAIQ RADIATION ONCOLOGY Prescribed Fractional Dose 1,000 cGray MOSAIQ RADIATION ONCOLOGY Prescribed Total Dose 5,000 cGray MOSAIQ RADIATION ONCOLOGY Actual Fractions Delivered 1 MOSAIQ RADIATION ONCOLOGY Actual Session Delivered Dose 1,000 cGray MOSAIQ RADIATION ONCOLOGY Actual Total Dose 1,000 cGray MOSAIQ RADIATION ONCOLOGY Prescribed Technique SBRT VMAT MOSAIQ RADIATION ONCOLOGY Elapsed Days 0 MOSAIQ RADIATION ONCOLOGY Start Date 04/23/2025 MOSAIQ RADIATION ONCOLOGY Last Date 04/23/2025 MOSAIQ RADIATION ONCOLOGY Prescribed Number of Fractions 5 MOSAIQ RADIATION ONCOLOGY 04/23/2025 2:17 PM EDT Physician Radiation Oncology RADIATION ONCOLO GY ORDERABLES Final Result MOSAIQ RADIATION ONCOLOGY * PET CT Skull to Mid Thigh Initial (03/09/2025 12:30 PM EDT) Anatomical Region Laterality Modality Body Radiographic Lilian ging 03/15/2025 5:01 AM EDT Impressions 03/15/2025 5:39 AM EDT 1. Right upper lobe pulmonary nodule demonstrating mild FDG activity not significantly increased from mediastinal blood pool 2. No significant FDG avid lymphadenopathy Please note: The CT was acquired at a low radiation dose settings. The images are of nondiagnostic quality and used solely for purposes of attenuation correction and slice localization for the PET scan. If a diagnostic CT study is desired it must be ordered separately. -------- FINAL REPORT -------- Dictated By: Samanta Barnes Dictated Date: 03/15/2025 05:01 ET Assigned Physician: Samanta Barnes Reviewed and Electronically Signed By: Samanta Barnes Signed Date: 03/15/2025 05:39 ET Workstation ID: [id number] Transcribed By: Self Edit Transcribed Date: 03/15/2025 05:01 ET Narrative 03/15/2025 5:39 AM EDT INDICATION: Staging for known lung cancer TECHNIQUE: FDG PET-CT imaging was performed from the skull bases through the thighs in a single acquisition with data set reconstructed in axial, coronal, and sagittal planes at the computer workstation with fused data from both the PET imaging study and attenuation correction CT. The CT portion of the examination was done strictly for attenuation correction and is not a true diagnostic CT examination. DLP: 420 mGy-cm Radiopharmaceutical: 11.1 mCi of F-18 FDG IV. Blood glucose: 111 mg/dl. COMPARISON: Relation is made with prior chest CTs dated November and February 2025 FINDINGS: HEAD AND NECK: No abnormal FDG activity. Cerebral volume loss. THORAX: Right upper lobe pulmonary nodule SUV max 1.8; biopsy-proven adenocarcinoma. No significant FDG avid thoracic or axillary lymphadenopathy. For example, right paratracheal SUV max 1.6, subcarinal SUV max 1.7 and right hilar SUV max 2.2 (mediastinal blood pool SUV Max 2.3). Small hiatal hernia SUV max 3.7. ABDOMEN/PELVIS: Nonspecific bowel activity. MUSCULOSKELETAL: No abnormal FDG activity. Procedure Note Samanta Barnes MD - 03/15/2025 INDICATION: Staging for known lung cancer TECHNIQUE: FDG PET-CT imaging was performed from the skull bases throughthe thighs in a single acquisition with data set reconstructed in axial,coronal, and sagittal planes at the computer workstation with fused datafrom both the PET imaging study and attenuation correction CT. The CTportion of the examination was done strictly for attenuation correctionand is not a true diagnostic CT examination. DLP: 420 mGy-cm Radiopharmaceutical: 11.1 mCi of F-18 FDG IV. Blood glucose: 111 mg/dl. COMPARISON: Relation is made with prior chest CTs dated November and February2025 FINDINGS: HEAD AND NECK: No abnormal FDG activity. Cerebral volume loss. THORAX: Right upper lobe pulmonary nodule SUV max 1.8; biopsy- provenadenocarcinoma. No significant FDG avid thoracic or axillary lymphadenopathy. Forexample, right paratracheal SUV max 1.6, subcarinal SUV max 1.7 and righthilar SUV max 2.2 (mediastinal blood pool SUV Max 2.3). Small hiatal hernia SUV max 3.7. ABDOMEN/PELVIS: Nonspecific bowel activity. MUSCULOSKELETAL: No abnormal FDG activity. IMPRESSION: 1. Right upper lobe pulmonary nodule demonstrating mild FDG activity notsignificantly increased from mediastinal blood pool 2. No significant FDG avid lymphadenopathy Please note: The CT was acquired at a low radiation dose settings. The images are ofnondiagnostic quality and used solely for purposes of attenuationcorrection and slice localization for the PET scan. If a diagnostic CTstudy is desired it must be ordered separately. -------- FINAL REPORT -------- Dictated By: Samanta Barnes Dictated Date: 03/15/2025 05:01 ET Assigned Physician: Samanta Barnes Reviewed and Electronically Signed By: Samanta Barnes Signed Date: 03/15/2025 05:39 ET Workstation ID: [id number] Transcribed By: Self Edit Transcribed Date: 03/15/2025 05:01 ET Lizzy Horn MD IMG NM PROCEDURES Final Result * XR Chest 1 View (02/23/2025 6:47 PM EDT) Only the most recent of2 resultswithin the time period is included. Anatomical Region Laterality Modality Body Radiographic Lilian ging 02/23/2025 7:12 PM EDT Impressions 02/23/2025 7:12 PM EDT Mild left lower lobe atelectasis. This document has been electronically signed by: Deion Hernandez MD on 02/23/2025 19:12:58 Narrative 02/23/2025 7:12 PM EDT INDICATION: Lung biopsy 1 view chest x-ray Comparison: RF - XR CHEST 1 VW - 02/23/25 16:29 EDT Findings: Mild left lower lobe atelectasis. No significant pleural effusion or pneumothorax. Scattered right upper lobe pulmonary nodules better appreciated on prior CT. Prominent cardiac silhouette. No acute fracture. Procedure Note Deion Hernandez MD - 02/23/2025 INDICATION: Lung biopsy 1 view chest x-ray Comparison: RF - XR CHEST 1 - 02/23/25 16:29 EDT Findings: Mild left lower lobe atelectasis. No significant pleural effusion or pneumothorax. Scattered right upper lobe pulmonary nodules better appreciated on prior CT. Prominent cardiac silhouette. No acute fracture. IMPRESSION: Mild left lower lobe atelectasis. This document has been electronically signed by: Deion Hernandez MD on 02/23/2025 19:12:58 Lizzy Horn MD IMG XR PROCEDURES Final Result * Concentration (02/23/2025 4:45 PM EDT) AFB Concentration Performed 9:05 AM EDT [facility] Wash Structure of upper lobe of right lung / Unknown 02/23/2025 4:45 PM EDT 02/23/2025 5:53 PM EDT Narrative [facility] - 04/09/2025 9:05 AM EDT Performed at: - [facility] [id number] Liner Roll Changer: Marivel Swift MD, Phone: [phone] Lizzy Horn MD LAB BLOOD ORDERABLES Edited Resu lt - Final [facility] * Culture, afb and smear with reflex to identification and susceptibility (02/23/2025 4:45 PM EDT) AFB Specimen Processing Concentration 04/09/2025 9:05 AM EDT [facility] Acid Fast Smear Negative 04/09/2025 9:05 AM EDT [facility] Acid Fast Culture Negative 04/09/2025 9:05 AM EDT [facility] Comment:No acid fast bacilli isolated after 6 weeks. Wash Structure of upper lobe of right lung / Unknown 02/23/2025 4:45 PM EDT 02/23/2025 5:53 PM EDT Narrative [facility] - 04/09/2025 9:05 AM EDT Performed at: 01 - [facility] [address] [id number] Liner Roll Changer: Marivel Swift MD, Phone: [phone] us Lizzy Horn MD LAB MICROBIOLOGY - GENERAL ORDER LEONELA Final Result [facility] * Acid fast bacilli stain (02/23/2025 4:45 PM EDT) AFB Stain Result No Acid fast bacilli seen on direct smear (Fuchsin method, 1000x) No Acid Fast Bacilli seen on direct smear 02/24/2025 8:17 AM EDT [facility] Wash Structure of upper lobe of right lung / Unknown 02/23/2025 4:45 PM EDT 02/23/2025 5:53 PM EDT us Lizzy Horn MD LAB MICROBIOLOGY - GENERAL ORDER LEONELA Final Result Performing Organization Address City/[facility]/ZIP Co de Phone Number [facility] [address] [place] [address], [place] [phone] * Culture fungal, other (02/23/2025 4:45 PM EDT) Culture, Fungus Negative for Fungus after 4 Weeks 03/26/2025 7:56 AM EDT [facility] Wash Structure of upper lobe of right lung / Unknown 02/23/2025 4:45 PM EDT 02/23/2025 5:53 PM EDT us Lizzy Horn MD LAB MICROBIOLOGY - GENERAL ORDER LEONELA Final Result Performing Organization Address City/[facility]/ZIP Co de Phone Number [facility] [address] [place] [address], * Tissue exam (02/23/2025 4:41 PM EDT) Final Diagnosis Lung, Right Upper Lobe, Nodule, 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 02/27/2025 9:30 AM EDT [facility] Comment Secondary review for new malignancy performed by Dr. Garrido with agreement. Lory Araujo MD notified Dr. Horn 02/27/25 at 9:30am. 02/27/2025 9:30 AM EDT [facility] Gross Description A. Lung, Right Upper Lobe, Nodule Cryobiopsy: Labeled lung RUL, right upp . Received in formalin is a 0.6 cm aggregate of irregular friable pink-red to white-marin soft tissue fragments which is wrapped in paper and submitted in toto in two cassettes, multiple pieces each, x 2 with six unstained slides between levels. MARCO 02/27/2025 9:30 AM EDT [facility] Disclaimer Unless otherwise specified, all tissue is 10% NB formalin fixed and paraffin embedded. 02/27/2025 9:30 AM EDT [facility] Tissue Structure of upper lobe of right lung / Unknown 02/23/2025 4:41 PM EDT 02/26/2025 11:02 AM EDT Lizzy Horn MD LAB PATHOLOGY ORDERABLES Final R esult Performing Organization Address City/[facility]/ZIP Co de Phone Number [facility] [address] [place] [address], [place] [phone] * Non-gynecologic cytology (02/23/2025 4:39 PM EDT) Final Diagnosis A. Lung, Right Upper Lobe, fine needle aspiration, (ThinPrep, cell block): Rare atypical cells suspicious for adenocarcinoma. B. Lung, Right Upper Lobe, brushing, (ThinPrep, cell block): Positive for malignant cells. Adenocarcinoma. C. Lung, Right Upper Lobe, washing, (ThinPrep, cell block): Negative for malignant cells. 02/27/2025 2:53 PM EDT [facility] Comment Please also see concurrent cryo biopsy of the right upper lobe, [id number]. 02/27/2025 2:53 PM EDT [facility] Specimen A Adequacy Satisfactory for evaluation 02/27/2025 2:53 PM [facility] Specimen B Adequacy Satisfactory for evaluation 02/27/2025 2:53 PM EDT [facility] Specimen C Adequacy Satisfactory for evaluation 02/27/2025 2:53 PM EDT [facility] Gross Description A. Lung, Right Upper Lobe, Right Upper Lobe Nodule: Received 30ml of white cloudy cytolyt 1 thin prep, 1 cell block Formalin fixation 9.5 put in formalin at 1130 B. Lung, Right Upper Lobe, Right Upper Lobe Nodule Brushing: Received 30ml of white cloudy cytolyt with brush 1 thin prep, 1 cell block Formalin fixation 9.5 put in formalin at 1130 C. Lung, Right Upper Lobe, Right Upper Lobe Nodule Washing: Received 15ml of light pink cloudy fluid 1 thin prep, 1 cell block Formalin fixation 9.5 Put in formalin at 1130 02/27/2025 2:53 PM EDT [facility] Disclaimer Unless otherwise specified, all tissue is 10% NB formalin fixed and paraffin embedded. Technical cytopathology services provided by [facility], at [address] [place] [id number] (CLIA # [id number]/Crispin Cannon MD, Pot Washer.) 02/27/2025 2:53 PM EDT [facility]) HOSPITAL LAB Fine Needle Aspirate Structure of upper lobe of right lung / Unknown 02/23/2025 4:39 PM EDT 02/26/2025 10:44 AM EDT Brushing, function (observable entity) Structure of upper lobe of right lung / Unknown 02/23/2025 4:42 PM EDT 02/26/2025 10:18 AM EDT Specimen obtained by lavage (specimen) Structure of upper lobe of right lung / Unknown 02/23/2025 4:45 PM EDT 02/26/2025 10:44 AM EDT us Lizzy Horn MD LAB CYTOLOGY ORDERABLES Final Re sult [facility] ([facility]) [facility] [address] [place] [address], [place] [phone] * TH AN ENDOTRACHEAL(NO CHARGE) (02/23/2025 4:15 PM EDT) Tamanna Whalen CRNA - 02/23/2025 4:15 PM EDT Tamanna Taylor CRNA 02/23/2025 4:16 PM General Information and Staff Patient location during procedure: OR Resident/EPIDEMIOLOGY INTERNSHIP: Tamanna Taylor CRNA Performed: resident/EPIDEMIOLOGY INTERNSHIP/CAA Performed by: Tamanna Taylor CRNA Authorized by: Alan Mcelroy DO Intubation Airway not difficult Urgency: elective Final Airway Details Successful airway: ETT Successful intubation technique: direct laryngoscopy Facilitating devices/methods: intubating stylet Blade: Hema Blade size: #3 ETT size (mm): 8.5 Cormack-Lehane Classification: grade I - full view of glottis Placement verified by: chest auscultation and capnometry Measured from: lips ETT to lips (cm): 20 Number of attempts at approach: 1Final airway type: endotracheal airway Indications and Patient Condition Indications for airway management: anesthesia and airway protection Spontaneous ventilation: present Sedation level: Yes Preoxygenated: yes Soft Tissue Damage: No Dentition Unchanged: Yes Patient position: sniffing MILS maintained throughout Mask difficulty assessment: 1 - vent by mask us Alan Mcelroy DO ANESTHESIA ORDERABLES Final Result * (ABNORMAL) CBC auto differential (02/19/2025 1:36 PM EDT) [facility] WBC 8.6 4.8 - 10.8 K/mcL LAB HEMETOLOGY METHOD 02/19/2025 2:22 PM EDT [facility] RBC 4.30(L) 4.50 - 5.50 M/mcL LAB HEMETOLOGY METHOD 02/19/2025 2:22 PM EDT [facility] Hemoglobin 13.9 13.5 - 17.5 g/dL LAB HEMETOLOGY METHOD 02/19/2025 2:22 [facility] Hematocrit 40.1(L) 42.0 - 54.0 % LAB HEMETOLOGY METHOD 02/19/2025 2:22 PM [facility] MCV 92.6 79.0 - 98.0 FL LAB HEMETOLOGY METHOD 02/19/2025 2:22 PM [facility] MCH 32.1(H) 27.0 - 32.0 pcg LAB HEMETOLOGY METHOD 02/19/2025 2:22 PM [facility] MCHC 34.7 32.0 - 37.0 g/dL LAB HEMETOLOGY METHOD 02/19/2025 2:22 [facility] RDW 12.7 11.0 - 15.0 % LAB HEMETOLOGY METHOD 02/19/2025 2:22 PM EDT [facility] Platelets 280 130 - 400 K/mcL LAB HEMETOLOGY METHOD 02/19/2025 2:22 PM [facility] MPV 11.1(H) 7.0 - 11.0 FL LAB HEMETOLOGY METHOD 02/19/2025 2:22 PM [facility] NRBC 0.0 <1.0 % LAB HEMETOLOGY METHOD 02/19/2025 2:22 PM EDT [facility] NRBC Absolute 0.00 <0.10 K/mcL LAB HEMETOLOGY METHOD 02/19/2025 2:22 PM EDT [facility] Neutrophils Relative 64.1 % LAB HEMETOLOGY METHOD 02/19/2025 2:22 PM [facility] Lymphocytes Relative 22.4 % LAB HEMETOLOGY METHOD 02/19/2025 2:22 PM [facility] Monocytes Relative 10.4 % LAB HEMETOLOGY METHOD 02/19/2025 2:22 PM [facility] Eosinophils Relative 2.2 % LAB HEMETOLOGY METHOD 02/19/2025 2:22 PM [facility] Basophils Relative 0.6 % LAB HEMETOLOGY METHOD 02/19/2025 2:22 PM [facility] Immature Granulocytes Relative 0.3 % LAB HEMETOLOGY METHOD 02/19/2025 2:22 PM [facility] Neutrophils Absolute 5.52 1.50 - 7.00 K/mcL LAB HEMETOLOGY METHOD 02/19/2025 2:22 PM [facility] Lymphocytes Absolute 1.93 1.00 - 5.00 K/mcL LAB HEMETOLOGY METHOD 02/19/2025 2:22 PM [facility] Monocytes Absolute 0.90 0.20 - 1.00 K/mcL LAB HEMETOLOGY METHOD 02/19/2025 2:22 PM [facility] Eosinophils Absolute 0.19 0.00 - 0.50 K/mcL LAB HEMETOLOGY METHOD 02/19/2025 2:22 PM [facility] Basophils Absolute 0.05 0.00 - 0.20 K/mcL LAB HEMETOLOGY METHOD 02/19/2025 2:22 PM [facility] Immature Granulocytes Absolute 0.03 0.00 - 0.03 K/mcL LAB HEMETOLOGY METHOD 02/19/2025 2:22 PM EDT [facility] Blood Venous blood specimen / Unknown Venipuncture / Unknown 02/19/2025 1:36 PM EDT 02/19/2025 2:09 PM EDT us Lizzy Horn MD LAB BLOOD ORDERABLES Final Resul t Performing Organization Address [facility] de Phone Number [facility] [address] [place] [address], [place] [phone] * Activated partial thromboplastin time (02/19/2025 1:36 PM EDT) aPTT 30.7 24.1 - 39.3 sec LAB COAGULATION METHOD 02/19/2025 2:31 PM EDT [facility] Blood Venous blood specimen / Unknown Venipuncture / Unknown 02/19/2025 1:36 PM EDT 02/19/2025 2:09 PM EDT us Lizzy Horn MD LAB BLOOD ORDERABLES Final Resul t Performing Organization Address [facility] de Phone Number [facility] [address] [place] [address], [place] [phone] * Prothrombin time with INR (02/19/2025 1:36 PM EDT) Protime 12.1 10.6 - 13.9 sec LAB COAGULATION METHOD 02/19/2025 2:31 PM EDT [facility] INR 1.0 LAB COAGULATION METHOD 02/19/2025 2:31 PM EDT [facility] Blood Venous blood specimen / Unknown Venipuncture / Unknown 02/19/2025 1:36 PM EDT 02/19/2025 2:09 PM EDT us Lizzy Horn MD LAB BLOOD ORDERABLES Final Resul t Performing Organization Address City/[facility]/ZIP Co de Phone Number [facility] [address] [place] [address], [place] [phone] * Type and screen (02/19/2025 1:36 PM EDT) [facility] ABO Group A 02/19/2025 5:03 PM EDT [facility] Rh Type Positive 02/19/2025 5:03 PM EDT [facility] Antibody Screen Negative 02/19/2025 5:03 PM EDT [facility] Blood Venous blood specimen / Unknown Venipuncture / Unknown 02/19/2025 1:36 PM EDT 02/19/2025 2:09 PM EDT Lizzy Horn MD LAB BLOOD BANK TEST ORDERABLES F inal Result Performing Organization Address [facility]/ZIP Co de Phone Number [facility] [address] [place] [address], [place] [phone] * (ABNORMAL) Basic metabolic panel (02/19/2025 1:36 PM EDT) [facility] Sodium 137 133 - 145 mmol/L LAB CHEMISTRY METHOD 02/19/2025 5:10 PM EDT [facility] Potassium 4.3 3.5 - 5.5 mmol/L LAB CHEMISTRY METHOD 02/19/2025 5:10 PM EDT [facility] Chloride 103 96 - 110 mmol/L LAB CHEMISTRY METHOD 02/19/2025 5:10 PM EDT [facility] CO2 32 21 - 32 mmol/L LAB CHEMISTRY METHOD 02/19/2025 5:10 PM EDT [facility] Anion Gap 2(L) 3 - 11 LAB CHEMISTRY METHOD 02/19/2025 5:10 PM EDT [facility] Glucose 99 70 - 100 mg/dL LAB CHEMISTRY METHOD 02/19/2025 5:10 PM EDT [facility] BUN 15 5 - 25 mg/dL LAB CHEMISTRY METHOD 02/19/2025 5:10 PM EDT [facility] Creatinine 0.83 0.70 - 1.30 mg/dL LAB CHEMISTRY METHOD 02/19/2025 5:10 PM EDT [facility] eGFR 88 >=60 mL/min/1. 73m2 LAB CHEMISTRY METHOD 02/19/2025 5:10 PM EDT [facility] Comment:Calculation based on the Chronic Kidney Disease Epidemiology Collaboration (CKD-EPI) equation refit without adjustment for race. BUN/Creatinine Ratio 18.1 LAB CHEMISTRY METHOD 02/19/2025 5:10 PM EDT [facility] Calcium 9.3 8.5 - 10.5 mg/dL LAB CHEMISTRY METHOD 02/19/2025 5:10 PM EDT [facility] Blood Venous blood specimen / Unknown Venipuncture / Unknown 02/19/2025 1:36 PM EDT 02/19/2025 2:09 PM EDT us Lizzy Horn MD LAB BLOOD ORDERABLES Final Resul t [facility] [address] [place] [address], [place] [phone] from Last 3 Months Insurance MEDICARE [facility] Advance Directives Documents on File Type Date Recorded Patient Blind Lacer Expl anation DNR (Do Not Resuscitate) 02/26/2025 9:06 AM Power of Faculty Administrator 02/23/2025 3:19 PM * Full Code - Default (Latest Code Status on File) Date Activated Date Inactivated Comments 02/23/2025 3:44 PM 02/23/2025 9:23 PM This is orde r is used when code status has not been discussed with the patient, or code status is otherwise unknown/unconfirmed To update the patient's code status, place a code status order. Do not modify or discontinue any currently active code status orders. Healthcare Agents on File Name Relationship Healthcare Agent Relationshi p Communication Ben Cid Spouse Health Care Agent Care Teams Bullet Slugs Inspector Relationship Specialty Start Date End Date Gildardo Perez MD [address] [place] [address] Dr [address] Electronic Device Repairer: [facility] [place] [phone] PCP - General Cardiology 02/21/25
--- OUTSIDE RECORDS SUMMARY | 2025-05-21 06:49 | XMS_ITS | Patient Health Record ---
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 Name Role Phone Gildardo Perez MD Primary Care Provider Blaine Rocio Weiss Unavailable [phone] Allergies No Known Allergies Reason For Referral No Information Medications Medication SIG (Take, Route, Frequency, Duration) Notes Start Date End Date Status Bactrim DS 800-160 MG 1 tablet Orally every 12 hrs; Duration: 14 days 05/09/2015 Not-Taking Bactrim DS 800-160 MG 1 tablet Orally Twice a day; Duration: 10 day(s) 01/22/2022 Not-Taking Lubrex 50mg 1 tab bedtime Not- Taking Venlafaxine HCl ER 75 MG 1 capsule with food Orally Once a day Not-Taking OLANZapine 2.5 MG 1 tablet Orally in am Not-Taking risperiDONE Not-Taki ng OLANZapine 5 MG 1 tablet Orally Not-Taking SEROquel 25 MG 1 tablet at bedtime Orally two times a day Active Vitamin D2 50,000UNIT Weekly Not-Taking Gabapentin 100 mg twice a day Active tylenol 1 tab Oral PRN Not-T aking Divalproex Sodium ER 250 MG 1 tablet Orally 3 times daily Active Ciclopirox Olamine 0.77% external Apply to effected areas twice a day; Duration: 30 days 03/30/2016 Not-Taking Atorvastatin Calcium 20 MG 1 tablet Orally Once a day Active Donepezil HCl 10 MG 1 tablet at bedtime Orally Not-Taking Lipitor 10 MG Orally Not-Ta maricruz PROzac 10 MG 1 capsule in the morning Orally Once a day Not-Taking Melatonin 3 MG 1 tablet at bedtime as needed Orally Once a day Active Levaquin LEVA-juana once a day N ot-Taking levoFLOXacin 500 MG 1 tablet Orally Once a day; Duration: 10 day(s) 02/02/2022 Not-Taking Keflex 500 MG 1 capsule Orally every 12 hrs; Duration: 14 days Not-Taking levoFLOXacin 500 MG 1 tablet Orally Once a day; Duration: 10 day(s) 01/28/2022 Not-Taking zzzCompression Stockings 20-30mm Hg . . .; Duration: . N ot-Taking Immunizations Vaccine Route Administration Date Status Comme nts Influenza Unknown 03/05/2024 Administered COVID-19 Pfizer BioNTech Vaccine Unknown 04/29/2021 Administered 08/02/2020 08/20/20 Social History Tobacco Use: Social History Observation Description Date Details (start date - stop date) Never Smoker NA - NA Alcohol Screen Question Answer Notes Did you have a drink contain ing alcohol in the past year? Yes How often did you have a dri nk containing alcohol in the past year? Monthly or less (1 point) Points 1 Interpretation Negative Tobacco use other than smoking: Question Answer Notes Are you an other tobacco user? No Tobacco Control (Standard) Question Answer Notes Tobacco use: Nonsmoker AUDIT-C (Standard) Question Answer Notes Did you have a drink containing alcohol in the p ast year? No Points 0 Interpretation Negative Problems Problem Type SNOMED Code ICD Code Onset Dates Problem Status W/U Status Risk Notes Problem Acquired hammer toe of right foot (0684071644646035) Other hammer toe(s) (acquired), right foot (M20.41) Active confirmed Problem Tinea unguium (406779261) Tinea unguium (B35.1) Active confirmed Problem Acquired hammer toe of left foot (4413852508637044) Other hammer toe(s) (acquired), left foot (M20.42) Active confirmed Problem Acquired hallux valgus (79252069) Hallux valgus (acquired), right foot (M20.11) Active confirmed Problem Localized, primary osteoarthritis of the ankle and/or foot (518358639) Arthritis of joint of lesser toe, left (M19.072) Active confirmed Problem Localized, primary osteoarthritis of the ankle and/or foot (446401033) Arthritis of joint of lesser toe, right (M19.071) Active confirmed Vital Signs Blood pressure diastolic 80 mm Hg 2025 Height 5 ft 6 in in 2025 Blood pressure systolic 120 mm Hg 2025 Weight 140 lbs 2025 BMI 22.59 kg/m2 2025 Procedures Procedure Date Ordered Date Performed Result Body Sit e 61768-XOYLBRK NAIL, 6 OR MORE 08/07/2024 N/A 36340-Doypgbqs Plate 08/07/2024 N/A 14199-USQQFLV NAIL, 6 OR MORE 11/06/2024 N/A 75994-XYMKIPC NAIL, 6 OR MORE 2025 N/A 25759-Xzwogyje Plate 2025 N/A Encounters Encounter Location Date [facility] [address] 08/07/2024 Rocio Black Tinea unguium B35.1 ; Ingrown nail L60.0 ; Pain in left toe(s) M79.675 and Pain in right toe(s) M79.[address] [facility] [address] 11/06/2024 Rocio Black Tinea unguium B35.1 ; Pain in left toe(s) M79.675 and Pain in right toe(s) M79.[address] [address] 2025 Rocio Black Tinea unguium B35.1 ; Other hammer toe(s) (acquired), right foot M20.41 ; Pain in left toe(s) M79.675 ; Pain in right toe(s) M79.674 ; Ingrown nail L60.0 ; Arthritis of joint of lesser toe, right M19.071 ; Pain in left toe(s) M79.675 ; Other hammer toe(s) (acquired), left foot M20.42 ; Arthritis of joint of lesser toe, left M19.072 ; Subluxation of metatarsophalangeal joint of toe, initial encounter S93.149A ; Hallux valgus (acquired), right foot M20.11 and 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 Assessments Encounter Date Diagnosis (ICD Code) Assessment Notes Treatment Notes Treatment Clinical Notes Section Notes 08/07/2024 Tinea unguium (ICD-1 0 - B35.1) 08/07/2024 Ingrown nail (ICD-10 - L60.0) 11/06/2024 Tinea unguium (ICD-1 0 - B35.1) 11/06/2024 Pain in left toe(s) (ICD-10 - M79.675) 2025 Other hammer toe(s) (acquired), right foot (ICD-10 - M20.41) 2025 Tinea unguium (ICD-1 0 - B35.1) 2025 Pain in left toe(s) (ICD-10 - M79.675) 11/06/2024 Pain in right toe(s) (ICD-10 - M79.674) 08/07/2024 Pain in left toe(s) (ICD-10 - M79.675) 08/07/2024 Pain in right toe(s) (ICD-10 - M79.674) 2025 Pain in right toe(s) (ICD-10 - M79.674) 2025 Ingrown nail (ICD-10 - L60.0) 2025 Arthritis of joint o f lesser toe, right (ICD-10 - M19.071) 2025 Pain in left toe(s) (ICD-10 - M79.675) 2025 Other hammer toe(s) (acquired), left foot (ICD-10 - M20.42) 2025 Arthritis of joint o f lesser toe, left (ICD-10 - M19.072) 2025 Subluxation of metatarsophalangeal joint of toe, initial encounter (ICD-10 - S93.149A) 2025 Hallux valgus (acquired), right foot (ICD-10 - M20.11) 2025 Crossover toe deform ity of right foot (ICD-10 - M20.5X1) Plan Of Treatment Pending Test Test Name Order Date *Wound Culture 05/09/2015 *Wound Culture 03/10/2018 *Wound Culture 01/22/2022 09468-ECPHCFV NAIL, 6 OR MORE 02/26/2022 80863-VAJZXYA NAIL, 6 OR MORE 06/11/2022 15709-ECYOMZL NAIL, 6 OR MORE 03/27/2021 41485-AYNVBAP NAIL, 6 OR MORE 06/04/2021 39257-RSJJYFT NAIL, 6 OR MORE 08/14/2021 97127-DWBDLVP NAIL, 6 OR MORE 10/16/2021 37015-NJNBXPA NAIL, 6 OR MORE 12/22/2021 18607-ZGSXNAB NAIL, 6 OR MORE 09/21/2022 99735-BWTIIZI NAIL, 6 OR MORE 11/26/2022 09099-ZPFUHMF NAIL, 6 OR MORE 02/04/2023 64955-FWPOPJH NAIL, 6 OR MORE 04/22/2023 39975-PUFBVPF NAIL, 6 OR MORE 07/26/2023 12859-GDDNUQP NAIL, 6 OR MORE 10/18/2023 65139-VGDNYSU NAIL, 6 OR MORE 01/31/2024 79130-FTCRBSV NAIL, 6 OR MORE 04/27/2024 55220-BHNHQPW NAIL, 6 OR MORE 08/07/2024 73143-DAGZBWT NAIL, 6 OR MORE 11/06/2024 07034-QCFEEMH NAIL, 6 OR MORE 2025 54576-WLVHPMY NAIL, 6 OR MORE 09/07/2017 24597-BXXAFOC NAIL, 6 OR MORE 12/09/2017 57591-IRRIZXZ NAIL, 6 OR MORE 03/10/2018 23074-JJPRBPW NAIL, 6 OR MORE 10/08/2016 68564-AHNNSXW NAIL, 6 OR MORE 12/31/2016 83317-GOULEBH NAIL, 6 OR MORE 09/23/2015 79450-ZOHSJGW NAIL, 6 OR MORE 04/01/2017 57991-EKGZNVW NAIL, 6 OR MORE 06/03/2017 06883-TYNMRDS NAIL, 6 OR MORE 11/17/2018 74586-XCINPHW NAIL, 6 OR MORE 02/16/2019 34979-SCSEVHV NAIL, 6 OR MORE 05/25/2019 41699-CTNLUHB NAIL, 6 OR MORE 06/06/2018 18244-QRPKETP NAIL, 6 OR MORE 08/18/2018 43743-FXZVBSF NAIL, 6 OR MORE 08/28/2019 19855-FSYQCIU NAIL, 6 OR MORE 11/30/2019 53018-PVMHFNJ NAIL, 6 OR MORE 03/07/2020 73498-XINCLZX NAIL, 6 OR MORE 06/24/2020 65280-QCFQGPY NAIL, 6 OR MORE 09/23/2020 32834-LLHFKLE NAIL, 6 OR MORE 12/26/2020 27505-XYLSHUR NAIL, 6 OR MORE 04/12/2015 09335-GZEZVOK NAIL, 6 OR MORE 10/24/2014 18875-PCWHQYW NAIL, 6 OR MORE 07/15/2015 37512-JAQOTBU NAIL, 6 OR MORE 12/23/2015 49164-YBSMZCZ NAIL, 6 OR MORE 03/30/2016 90952-EEDVSET NAIL, 6 OR MORE 07/09/2016 48479-FDVVVJA NAIL, 6 OR MORE 03/16/2011 44057-NHXYBZC NAIL, 6 OR MORE 07/13/2011 50215-ASZNKZE NAIL, 6 OR MORE 11/09/2011 40714-APMUDJI NAIL, 6 OR MORE 03/17/2012 00795-GXXBSSA NAIL, 6 OR MORE 08/18/2012 82887-QMGSOIA NAIL, 6 OR MORE 06/09/2013 86822-MXDRSJD NAIL, 6 OR MORE 01/09/2014 54721-LTBXTZX NAIL, 6 OR MORE 04/18/2014 91294-Dkel Destruction, -14 04/18/2014 51081-Fwpr Destruction, -14 01/09/2014 95454-Bunz Destruction, -14 06/09/2013 49612-Foie Destruction, -08/18/2012 97188-Vmjk Destruction, -14 03/17/2012 96797-Fccn Destruction, -14 11/09/2011 60331-Vthu Destruction, -14 07/13/2011 27129-Djwd Destruction, -14 03/16/2011 83906-Rdao Destruction, -14 07/15/2015 31389-Mtwj Destruction, -14 10/24/2014 37394-Yhyo Destruction, -14 09/23/2015 66612-Pjyggihr Plate 09/23/2020 86351-Spkehdew Plate 03/07/2020 34206-Djemffyq Plate 08/18/2018 92193-Yyjnhzwz Plate 07/09/2016 45200-Dylsjjgx Plate 04/12/2015 03866-Yigwjbxl Plate 08/18/2012 39441-Nfewvifs Plate 2025 46464-Nfkqhtsa Plate 08/07/2024 52410-Tellznrp Plate 07/26/2023 36465-Ryefkwpl Plate 02/04/2023 84336-Pzwfgzvn Plate 06/04/2021 21574-Ahdbluoe Plate 09/21/2022 64787-Ctuizxlz Plate Each Additional 07191-Ceambskq Plate Each Additional 03/2015 46561- Debride <25 sq cm 05/09/2015 54126- Debride <25 sq cm 05/23/2015 37426- Debride <25 sq cm 06/10/2015 63798- Debride <25 sq cm 12/31/2016 41944- Debride <25 sq cm 01/14/2017 00469- Debride <25 sq cm 03/24/2018 08959- Debride <25 sq cm 04/14/2018 92258- Debride <25 sq cm 12/09/2017 83239- Debride <25 sq cm 04/18/2015 79402- Debride <25 sq cm 02/26/2022 15988- Debride <25 sq cm 03/26/2022 42219- Debride <25 sq cm 04/23/2022 95476-VOWLYWL SKIN/TISSUE 03/10/2018 50499-AVXBFHO SKIN/TISSUE 04/12/2015 80887 I&D ABSCESS- SIMPLE,SINGLE 020 62525 I&D ABSCESS- SIMPLE,SINGLE 021 20888 I&D ABSCESS- SIMPLE,SINGLE 021 29939 I&D ABSCESS- SIMPLE,SINGLE 022 46468 I&D ABSCESS- SIMPLE,SINGLE 022 24638- Ganglion Cyst Injection/Aspiratio n 04/23/2022- Ganglion Cyst Injection/Aspiratio n 06/11/2022- Ganglion Cyst Injection/Aspiratio n 08/28/2019- Ganglion Cyst Injection/Aspiratio n 04/14/2018 00170-Xojnkiugs, Toes 06/03/2017 00666 - TENOTOMY, OPEN, EXTENSOR 022 Next Appt Details Provider Name:Rocio Whitman , 05/21/2025 09:00:00 AM, [address], [place], [address], Insurance Providers Payer Name Payer Address Payer Phone Subscriber Number Group Number Insured Name Patient Relationship to Insured Coverage Start Date Coverage End Date Medicare National Govt [facility] [address] [place] [address] [id number] Mariusz Cid Self - patient is the insured 9 for Life [address] [place] [address] [phone] [id number] Mariusz Cid Self - patient is the insured Medical (General) History Medical History History ICD Code mumps measles chicken pox Alzheimers disease Anxiety Surgical History Surgery Date(Month/Year) foot surgery 1998 Hospitalization History Reason Date(Month/Year) [facility]- Frequesnt falls 09/27/23 [facility] Falling 09/25/23 [facility] 3 weeks 05/26 [facility]- fell 5 times increased confusi on 3 weeks 05/07-
--- OUTSIDE RECORDS SUMMARY | 2025-05-21 06:49 | XMS_ITS ---
Author Name [facility] Organization Unknown Care Team Organization Name Specialty Phone Email Start Date End Da te [facility] Termed, PROVIDER Primary Care 05/12/202202/02
--- OUTSIDE RECORDS SUMMARY | 2025-05-21 06:49 | XMS_ITS | Data Portability ---
Author Organization [facility], [address] Address [address] [place] [address] Assessment No assessment recorded. Plan of Treatment Reminders Order Date Submit Date Provider Last Modified By Organization Details Last Modified Time Details Appointments None record ed. Lab None record ed. Referral None record ed. Procedures None record ed. Surgeries None record ed. Imaging None record ed. Medication Orders neomyc in-jaz ymyxin -hydro prema 3.5 mg-10, 000 unit/m L-1 % ear drops, susp 023 10/05/19 23 [id number], [address], [place], [phone], 12:24:15 Patient TargetsNo targets recorded. Patient Instructions Encounter Date Encounter Id Patient Instructions Last Modified By Organization Details Last Modified Time 10/04/2022 [id number] hearing loss: ca re instructions Not available 10/04/2022 12:24:08 decrease hearing and pressure bilateral ears requesting irrigation for cerumen removal. denies any fever or fever with chills, denies any SOB or respiratory distress. Not available 10/04/2022 12:24:07 Water in the ear , from swimming or bathing, makes the ear canal prone to infection. Hot and humid weather also predisposes to infection. Symptoms of otitis externa include: ear pain, fullness or itching in the ear, ear drainage, and temporary loss of hearing. These symptoms are similar to those caused by otitis media (middle ear infection). To differentiate between external ear infection and middle ear infection, the provider looks in the ear with an instrument called an otoscope. It is important to distinguish between the two infections, as they are treated differently: External otitis is treated with drops in the ear canal, while middle ear infection is sometimes treated with an antibiotic by mouth. MEASURES YOU SHOULD TAKE TO HELP TREAT EXTERNAL EAR INFECTION: 1. Use the ear drops regularly, as directed on the prescription. 2. The palma to treatment is getting the drops down into the canal and keeping the medicine there. To accomplish this: Lie on your side, with the unaffected ear down. Put three to four drops in the infected ear canal, then gently pull the outer ear back and forth several times, working the medicine deeper into the ear canal. Remain still, hxsu-ssl-mwlq-down for about 15 minutes. 3. Keep the ear as dry as possible. Swimming should be postponed until the infection has cleared. Try to avoid getting water in the ear when bathing. If water does get in the ear, the canal can be gently dried with a hair blow dryer. Use the low heat setting, and keep the blow dryer about six inches from the ear. 4. Imbz-ngr-oxsfjad pain medications can relieve discomfort associated with external otitis. Acetaminophen (Tylenol), ibuprofen, or naproxen can be taken, depending on individual preference. 5. Return to the [facility] in about one week. The provider can check to make sure the infection has cleared, continue the medicine if needed, okay a return to swimming, etc. 6. To prevent repeated episodes of otitis externa, try to keep the ear canal dry. Gentle swabbing with Q-tips (never deep into the canal), along with a hair blow dryer (low heat), can be used to dry the ear canal if it gets wet. 7. Should you develop severe pain, fever, severe headache, or stiff neck, see your personal/referral doctor or go to the closest emergency department promptly. Otitis externa does not normally cause these symptoms; another problem, requiring different treatment, could be present Not available 10/04/2022 12:10:02 Reason for Referral None Reported. Problems Name Problem SNOMED Code Status Onset Date Resolution Date Notes Provider Name and Address Organization Details Recorded Time Dementia 70683945 Active 2022 [facility] 11:48:46 Hyperlipidemia 50609168 Active 2022 [facility] 11:49:04 Problem Notes None recorded. Procedures Surgical History Date Name Laterality Status Provider Name and Address Organization Details Recorded Time 3 Cerumen Removal by Irrigation completed Juan Barone NP [address] [place], [address], [place] - [facility] 10/04/2022 12:08:47 Imaging Results None recorded. Procedure Notes None recorded. Medical Equipment None Reported. Allergies No known drug allergies Medications Name Sig Start Date Stop Date Status Note LastModified by Organization Details LastModified Time quetiapine 25 mg tablet active Not Available Not Available Not Available venlafaxine ER 37.5 mg capsule,ext ended release 24 hr 10/04 completed Not Available Not Available Not Available atorvastati n 20 mg tablet active Not Available Not Available Not Available divalproex 250 mg tablet,selwyn yed release TAKE 1 TABLET BY MOUTH TWO TIMES A DAY active Not Available Not Available No t Available trazodone 50 mg tablet 10/04 completed Not Available Not Available Not Available venlafaxine ER 150 mg capsule,ext ended release 24 hr 10/04 completed Not Available Not Available Not Available risperidone 0.25 mg tablet TAKE 1 TABLET BY MOUTH 2 TIMES A DAY 10/04 completed Not Available Not Available Not Available sulfamethox azole 800 mg-trimetho prim 160 mg tablet TAKE 1 TABLET BY MOUTH TWICE DAILY FOR 10 DAYS 10/04 completed Not Available Not Available Not Available tamsulosin 0.4 mg capsule TAKE 1 CAPSULE BY MOUTH DAILY 10/04 completed Not Available Not Available Not Available gabapentin 300 mg capsule TAKE 1 CAPSULE BY MOUTH TWO TIMES A DAY active Not Available Not Available No t Available levofloxaci n 500 mg tablet TAKE 1 TABLET BY MOUTH EVERY DAY FOR 10 DAYS 10/04 completed Not Available Not Available Not Available neomycin-po lymyxin-hyd rocort 3.5 mg-10,000 unit/mL-1 % ear drops,susp INSTILL 4 DROPS INTO AFFECTED EAR(S) BY OTIC ROUTE 3 TIMES PER DAY x 10 days. 2022 active Not Available Not Available Not Avai lable divalproex ER 250 mg tablet,exte nded release 24 hr active Not Available Not Available Not Available Vitals Date Recorded Body weight Body mass index (BMI) Body height Oxygen saturation Oxygen saturation in Arterial blood by Pulse oximetry Pain severity - 0-10 verbal numeric rating [Score] - Reported Heart rate Respiratory rate Body temperature Systolic And Diastolic Provider Name and Address Organization Details Last Updated DateTime 3 92215.9 3 g 22.6 kg/m2 167.64 cm 97 % 97 % 0 72 /min 20 /min 98.6 [degF] 112/74 mm[Hg] Vannesa Urbina PA - [facility] 3 11:50:56 Social History Question Answer Notes LastModified by [employer] Details LastModified Time Tobacco Smoking Status Never Smoker Vannesa moya PA - [facility] 10/04/2022 11:49:14 Have You Had Direct Contact, Or Contact During Intimacy, With Monkeypox Rash, Scabs, Or Body Fluids From A Person With Monkeypox? No Information not available 10/04/2022 Have You Recently Traveled Abroad? No Information not available 10/04/2022 Sex: Unknown Functional Status Question Answer Note LastModified by [employer] Details LastModified Time Do you use any illicit or recreational drugs? No Information not available 10/04/2022 Do you or have you ever used any other forms of tobacco or nicotine? No Information not available 10/04/2022 What is your level of alcohol consumption? None Information not available 10/04/2022 Mental Status None recorded. Family History Relationship Description Onset Age of this Age Resolved Age Notes LastModified by Organization Details LastModified Time Father No current problems or disability Not available 10/04 11:49:05 Mother No current problems or disability Not available 10/04 11:49:05 Medical History No medical history recorded. Immunizations Vaccine Type Date Status Note Provider Nam e and Address Organization Details Recorded Time Influenza, high-dose, quadrivalent, PF 0 completed Vannesa Parkdale null, [place] - [facility] 10/04/2022 11:55:46 Influenza, adjuvanted, quadrivalent, PF 2 completed Vannesa Ciara null, [place] - [facility] 10/04/2022 11:55:46 Influenza, adjuvanted, quadrivalent, PF 1 completed Vannesa Ciara null, [place] - [facility] 10/04/2022 11:55:46 COVID-19, mRNA, LNP-S, PF, 30 mcg/0.3 mL dose 1 completed Vannesa Parkdale null, [place] - [facility] 10/04/2022 11:55:46 COVID-19, mRNA, LNP-S, PF, 30 mcg/0.3 mL dose 1 completed Vannesa Ciara null, PA - [facility] 10/04/2022 11:55:46 COVID-19, mRNA, LNP-S, PF, 30 mcg/0.3 mL dose 1 completed Vannesa Parkdale null, [place] - [facility] 10/04/2022 11:55:46 COVID-19, mRNA, LNP-S, PF, 30 mcg/0.3 mL dose, marcos-sucrose 2 completed Vannesa Parkdale null, [place] - [facility] 10/04/2022 11:55:46 COVID-19, mRNA, LNP-S, bivalent, PF, 30 mcg/0.3 mL dose 2 completed Vannesa Parkdale null, [place] - [facility] 10/04/2022 11:55:46 pneumococcal polysaccharide PPV23 3 completed Vannesa Ciara null, PA - [facility] 10/04/2022 11:55:46 Td(adult) unspecified formulation 1 completed Vannesa Ciara null, [place] - [facility] 10/04/2022 11:55:46 Tdap 2 completed Vannesa Ciara null, [place] - [facility] 10/04/2022 11:55:46 Pneumococcal conjugate PCV 13 5 completed Vannesa Ciara null, [place] - [facility] 10/04/2022 11:55:46 Influenza, high-dose, trivalent, PF 7 completed Vannesa Parkdale null, [place] - [facility] 10/04/2022 11:55:46 Influenza, high-dose, trivalent, PF 8 completed Vannesa Parkdale null, [place] - [facility] 10/04/2022 11:55:46 Influenza, split virus, trivalent, preservative 1 completed Vannesa Ciara null, [place] - [facility] 10/04/2022 11:55:46 Influenza, split virus, trivalent, preservative 5 completed Vannesa Parkdale null, [place] - [facility] 10/04/2022 11:55:46 Influenza, split virus, trivalent, preservative 6 completed Vannesa Parkdale null, [place] - [facility] 10/04/2022 11:55:46 Td (adult), 2 Lf tetanus toxoid, preservative free, adsorbed 2 completed Vannesa Parkdale null, [place] - [facility] 10/04/2022 11:55:46 Past Encounters Encounter ID Performer Location Encounter Start Date Encounter Closed Date Diagnosis/Indication Diagnosis SNOMED-CT Code Diagnosis ICD10 Code Diagnosis IMO Codes Diagnosis Note [id number] [address] [place] [address] 05/29/2016 10:51:38 05/29/2016 11:21:42 [id number] [address] [address] [place] [address] 01/27/2018 09:10:25 01/27/2018 09:37:41 [id number] [address] [address] [place] [address] 08/08/2016 10:53:29 08/08/2016 12:55:55 [id number] [address] [address] [place] [address] 05/25/2016 09:48:35 05/25/2016 10:18:54 [id number] [address] [place] [address] 04/10/2016 15:35:21 04/10/2016 17:03:23 [id number] [address] [place] [address] 01/23/2017 09:51:57 01/23/2017 10:39:41 [id number] [address] [place] [address] 11/23/2016 13:00:11 11/23/2016 14:16:15 [id number] [address] [place] [address] 04/30/2016 08:22:47 04/30/2016 09:04:29 [id number] [address] [place] [address] 02/07/2015 10:25:51 02/07/2015 10:57:58 [id number] Juan Barone NP [address] [place] [address] 10/04/2022 11:29:45 10/04/2022 12:27:27 Impacted cerumen of bilateral ears 3862734704 253148 H61.23 Acute otitis externa 302 56879 H60.509 Health Concerns Section Related Observation LastModified by Organization Detai ls LastModified Time None Recorded Concern Status LastModified by Organization Details LastModified Time None Recorded Advance Directives Directive None Recorded Payers Insurance Date Sequence Insurance Name Policy Number Policy Cassidy Covered Member ID Cassidy Member ID Guarantor Name 10/04/2022 1 [place]IC[place]: [employer] Mariusz Cid [id number] Mariusz Cid 10/04/2022 2 FOR LIFE ( - MEDICARE SUPPLEMENT) Mariusz Cid [id number] Mariusz Cid Notes Date Note Type Note Provider Name and Address Organization Details Recorded Time 10/05/19 23 text/htm l Ear problem UCReported by PatientHPIFor quality, patient reportscloggedanddecreased hearing. For severity, patient reportsmoderate. For modifying factors, patient reportshurts to lie on, or pull on earbut reportsdoes not hurt to chewandoften has wax accumulation. For associated symptoms, patient reportspopping noise in the ears. For source of patient information, patient reportsinformation obtained from patient,patient arrived at urgent care ambulatory, andlearning styles: auditory. For location, patient reportsbilateral. For duration, patient reports2 weeks. For context, patient reportsno sick contacts,no recent swimming/water in ear, andno recent air travel. Juan Barone [place] [address] [place], [address], [place] - [facility] 10/04/2022 12:26:23
[2025-05-21 07:22] LABS: Hematocrit 39.3 % (42.0-52.0); Hemoglobin 13.7 g/dl (14.0-18.0); Imm Gran Abs Auto 0.02 X10*3/uL (0.00-0.03); Imm Gran Pct Auto 0.3 % (0.0-0.4); Lymphocytes Absolute Auto 2.0 X10*3/uL (1.2-4.9); Mean Corpuscular HGB Conc 34.9 g/dl (31.0-36.0); Mean Corpuscular Hemoglobin 31.9 pg (27.0-33.0); Mean Corpuscular Volume 91.6 fL (80.0-98.0); NRBC Abs Auto 0.000 X10*3/uL (0.0-0.012); NRBC Pct Auto 0.0 /100WBC (0.0-0.2); Platelet Count 231 X10*3/uL (160-400); Red Blood Count 4.29 X10*6/uL (4.60-5.80); White Blood Count 6.2 X10*3/uL (4.8-10.8)
[2025-05-21 07:37] LABS: Alanine Aminotransferase 16 U/L (0-40); Albumin Level 3.6 g/dL (3.5-5.0); Alkaline Phosphatase 67 U/L (39-117); Anion Gap 13 (12-20); Aspartate Amino Transferase 22 U/L (5-37); Blood Urea Nitrogen 12 mg/dL (9-16); Calcium 8.8 mg/dL (8.4-10.2); Carbon Dioxide 25 mmol/L (22-29); Chloride 105 mmol/L (96-108); Estimated Glomerular Filt Rate > 60; Potassium 3.7 mmol/L (3.3-5.1); Sodium 139 mmol/L (135-145); Total Protein 6.4 g/dL (6.5-8.0)
== END 2025-05-21 06:46 | disposition home or self-care (01) ==
LOC: HO.HSH3W 06:45
PROVIDERS: Visit Provider Nurse Practitioner
DX: R60.0 Localized edema (principal)
CPT/HCPCS: 36415; 80048; 80076; 80164; 85025